=== PATIENT | female | born 1960 | race Hispanic/Latino ===

== ENCOUNTER 2024-09-30 09:54 | Day surgery (SDC) | payer OTHER ==
[2024-09-26 12:40] LABS: BASOPHILS # (AUTO) 0.04 K/uL (0.00-0.20); BASOPHILS % (AUTO) 0.7 % (0.0-5.0); EOSINOPHILS # (AUTO) 0.16 K/uL (0.00-0.70); EOSINOPHILS % (AUTO) 2.6 % (0.0-8.0); HEMATOCRIT 42.3 % (36-48); IMMATURE GRANULOCYTE ABSOLUTE 0.01 K/uL (0-1); LYMPHOCYTES # (AUTO) 2.2 K/uL (1.0-4.8); LYMPHOCYTES % (AUTO) 36.3 % (21.0-51.0); MEAN CORPUSCULAR HEMOGLOBIN 31.1 pg (27.0-33.0); MEAN CORPUSCULAR HGB CONC 32.4 g/dL (32.0-36.0); MEAN CORPUSCULAR VOLUME 96.1 fL (79-99); MONOCYTES # (AUTO) 0.5 K/uL (0.1-1.0); MONOCYTES % (AUTO) 8.7 % (3.0-13.0); NEUTROPHILS # (AUTO) 3.2 K/uL (1.8-7.7); NEUTROPHILS % (AUTO) 51.5 % (40.0-77.0); PLATELET COUNT (AUTO) 207 K/uL (130-400); RED CELL DISTRIBUTION WIDTH 12.3 % (11.0-15.5); WHITE BLOOD COUNT (AUTO) 6.1 K/uL (4.8-10.8)
[2024-09-26 12:50] LABS: INR 0.99 (0.85-1.15); PROTHROMBIN TIME 10.7 SEC (9.6-11.6)
--- NOTE | 2024-09-26 12:50 | HMCIMG ---
CHEST 1VW REASON: PREOP COMPARISON: None. FINDINGS: Single view of the chest was obtained. Lungs are clear. Heart size is normal. There is no pulmonary vascular congestion. Mediastinum and bony thorax appear unremarkable. IMPRESSION: 1. Normal single view chest x-ray.
[2024-09-26 12:51] VITALS: BP 146/68; PULSE 77; RESP 16; TEMP 97.8
[2024-09-26 12:51] LABS: PARTIAL THROMBOPLASTIN TIME 25.5 SEC (26.3-35.5)
[2024-09-26 13:06] LABS: B-TYPE NATRIURETIC PEPTIDE 23 pg/mL (0-100)
[2024-09-26 13:09] LABS: CREATININE 0.8 mg/dL (0.5-1.0); POTASSIUM 4.7 mmol/L (3.5-5.1)
[2024-09-26 13:15] LABS: APPEARANCE,URINE CLEAR (CLEAR); BILIRUBIN,URINE NEGATIVE (NEGATIVE); COLOR,URINE LIGHT-YELLOW (YELLOW); GLUCOSE, URINE (UA) NEGATIVE (NEGATIVE); KETONES,URINE NEGATIVE (NEGATIVE); LEUKOCYTE ESTERASE ,URINE NEGATIVE Leu/uL (NEGATIVE); NITRATE,URINE NEGATIVE (NEGATIVE); OCCULT BLOOD,URINE NEGATIVE (NEGATIVE); PH,URINE 5.5 (5.0-8.0); PROTEIN,URINE NEGATIVE (NEGATIVE); UROBILINOGEN,URINE 0.2 mg/dL (0.2-1.0)
[2024-09-26 13:36] LABS: ADD UA MICROSCOPIC NO
--- NOTE | 2024-09-27 06:37 | EKG ---
[facility] Test Date: 2024-09-26 Test Time: 13:11:46 Pat Name: FRANCK CORBETT Department: [facility] Room: Gender: F Monitoring Engineer: [id number] : 1960 Requested By: PENNY RODRIGUEZ Order Number: [id number] Reading MD: Lisa Castillo Measurements Intervals [place] Rate: 70 P: 47 TX: 157 QRS: 60 QRSD: 81 T: 63 QT: 414 QTc: 446 Interpretive Statements Sinus rhythm No previous ECG available for comparison Electronically Signed On 09-27-2024 16:19:51 SUPPLIER QUALITY ENGINEER by Lisa Castillo Please click the below link to view image of tracing.
[~2024-09-30] VITALS: Ht 154.9 cm; Wt 62.0 kg
[2024-09-30] VITALS (10 sets, daily range): BP systolic 106–147; BP diastolic 59–75; PULSE 62–70; RESP 12–18; TEMP 97.3–98.6
[~2024-09-30 09:54] MED LIST: ASPI-1197 PO; ATOR40TA69 PO; CA C1TAB98 PO; CYAN50009 PO; GLUC-172 PO; SUMA1TAB7 PO
[2024-09-30] MEDS ORDERED: LIDOCAINE HCL 400MG/20ML VIAL ONE (13:03)
[2024-09-30] MEDS ORDERED: BIVALIRUDIN 250 MG/VIAL IV ONE (13:03)
[2024-09-30] MEDS ORDERED: HEParin 10,000 UNIT/10ML (1,000 UNIT/ML) VIAL ONE (13:04)
[2024-09-30] MEDS ORDERED: HEParin-NS 1,000 UNIT/500 ML 1,000 ML IV ONE (13:04)
[2024-09-30] MEDS ORDERED: IOHEXOL 350 MG/ML 100ML INFUS..BTL IV ONE (13:04)
[2024-09-30] MEDS ORDERED: NITROGLYCERIN 50MG VIAL ONE (13:04)
[2024-09-30] MEDS ORDERED: IOHEXOL-350 50ML VIAL IV ONE (13:04)
[2024-09-30] MEDS ORDERED: FENTanyl CITRate PF 50 MCG/1 ML 2ML VIAL ONE ×2 (13:09→14:05)
[2024-09-30] MEDS ORDERED: MIDAZOLAM HCL 1 MG/ML 2ML VIAL ONE (13:10)
--- NOTE | 2024-09-30 15:05 | PRN ---
DATE OF PROCEDURE: 09/30/2024 PROCEDURE PERFORMED: LEFT HEART CATHETERIZATION, LEFT VENTRICULOGRAM, LEFT AND RIGHT SELECTIVE CORONARY ANGIOGRAM, LEFT INTERNAL MAMMARY ARTERY INJECTION, INTRAVASCULAR ULTRASOUND OF LAD AND LEFT MAIN, IFR OF LEFT MAIN, LEFT COMMON FEMORAL ANGIOGRAM, PERCLOSE SUTURE CLOSURE OF THE RIGHT COMMON FEMORAL ARTERY, AND CONSCIOUS SEDATION MEDICAL TECHNOLOGIST CHIEF: Noah Rodriguez MD, [facility] INDICATION: ASYMPTOMATIC STATUS ABNORMAL CORONARY CALCIUM SCORE OF 250 IN THE LEFT MAIN AREA ABNORMAL CORONARY CT ANGIOGRAM DEMONSTRATING A 50% STENOSIS IN THE LEFT MAIN AND LAD PROCEDURE NOTE: After informed consent was obtained the patient was prepped and draped in the usual sterile fashion. A 6 Nepalese arterial sheath was inserted in the right femoral artery using a micropuncture technique with ultrasound guidance with a front wall, first pass puncture. This was performed after fluoroscopic identification of bony landmarks to facilitate a more accurate puncture of the right common femoral artery. The arterial sheath was aspirated and flushed. A 6 Nepalese pigtail catheter was then advanced over a J-tipped guidewire to the ascending aorta and was prolapsed into the left ventricle. The catheter was aspirated and flushed and pressure measurements were obtained. A left ventriculogram was then performed in a 30 LYLES projection. A pullback procedure was then performed, and this catheter was removed over a J-tipped guidewire. A 6F JL-4 was then advanced to the ascending aorta over a J-tipped guidewire, was aspirated and flushed, and was used for selective left coronary angiograms in multiple obliquities. A JR-4 was advanced in a similar fashion to the ascending aorta over a J-tipped guidewire and was used for selective right coronary angiograms in multiple obliquities with findings as outlined below. The JR4 was also used for a selective left internal mammary artery injection to assess suitability for use as a bypass conduit. A six Nepalese JL 3.5 guiding catheter was used for IFR of the left main and IVUS of the left main. A right common femoral angiogram was performed to assess suitability for Perclose suture closure and the Perclose device was deployed in standard fashion. Perclose suture closure was successful without bleeding or hematoma. The patient t olerated the procedure well and was returned to the holding area in stable condition. FINDINGS: LEFT HEART HEMODYNAMICS: The LVEDP prior to LV-gram was 18 mm of mercury and after the LV-gram was 19 mm of mercury. There was no aortic valve gradient on pullback. LEFT VENTRICULOGRAM: A left ventriculogram in a 30 degree LYLES projection demonstrated normal LV systolic function and segmental wall motion with an LVEF estimate of 65%. There was no angiographic MR. CORONARY ANGIOGRAM: LEFT MAIN: The left main had a 60% distal tubular stenosis. The ostial left main had a 25% inferior eccentric stenosis. IFR of the left main demonstrated readings of 0.94 and 0.95. IVUS measurements of the left main minimal luminal area were: 5.4 millimeters squared 5.2 millimeters squared 4.7 millimeters squared LEFT ANTERIOR DESCENDING: The LAD had a 20% tubular stenosis in the mid segment in the vicinity of the 1st septal cylinder honer. The ongoing mid and distal LAD were normal. The diagonal branches were normal. LEFT CIRCUMFLEX: The left circumflex was nondominant and normal as were the obtuse marginal branches. RAMUS INTERMEDIATE BRANCH: There was no ramus intermediate branch. RIGHT CORONARY ARTERY: The right coronary artery was dominant and had a 30% proximal stenosis but was otherwise normal as were the PDA and posterolateral branches. IMPRESSION: Asymptomatic cardiac status. Abnormal coronary CT angiogram with 50% left main stenosis. 60% distal left main tubular stenosis with minimal luminal area average of 5.1 millimeters squared (less than 6 millimeters squared is associated with increased MACE (major adverse cardiac events) IFR the left main stenosis was 0.94 with a repeat of 0.95 (less than 0.89 a significant) Otherwise nonobstructive coronary artery disease. Normal LV systolic function and segmental wall motion with LVEF of 65%. No mitral regurgitation. No aortic stenosis. RECOMMENDATION: Shared decision-making with CT surgery, patient, and clearance center manager. COMPLICATIONS OF PROCEDURE: None, the patient tolerated the procedure well and was returned to her room in stable condition. HEMOSTASIS: Perclose suture closure was successful without bleeding or hematoma. ESTIMATED BLOOD LOSS: Less than 10 mL. CONTRAST TOTAL: 150 mL. NOAH RODRIGUEZ MD Sep 30, 2024 15:05
[2024-09-30] MEDS: 0.9%NACL 1000ML 1,000 ML IV SCH (15:34)
--- NOTE | 2024-09-30 15:40 | NUR ---
PER JOSEPH /DR CAZARES WONT BE BY TO SEE PT TODAY , HE IS AWARE OF PT AND PAPER WORK WAS FAXED TO DR CAZARES OFFICE PT AND FAMILY MADE AWARE , WILL GIVE PT AND FAMILY DR CAZARES INFORMATION OF CONTACT
--- NOTE | 2024-09-30 17:00 | NUR ---
report received report from elba teresa rn
--- NOTE | 2024-09-30 18:24 | NUR ---
d/c discharge instructions given to pt and daughter. understanding voiced. rt groin free from hematoma or bleeding. sister at side. pt taken out via w/c.
== END 2024-09-30 18:30 | disposition home or self-care (01) ==
LOC: DAH 09:54
PROVIDERS: ATTEND Internal Medicine Cardiovascular Disease
DX: R94.39 Abnormal result of other cardiovascular function study (principal); I25.10 Atherosclerotic heart disease of native coronary artery without angina pectoris; R93.1 Abnormal findings on diagnostic imaging of heart and coronary circulation; I25.84 Coronary atherosclerosis due to calcified coronary lesion; E78.5 Hyperlipidemia, unspecified; I10 Essential (primary) hypertension; Z79.01 Long term (current) use of anticoagulants; Z79.82 Long term (current) use of aspirin; Z79.899 Other long term (current) drug therapy; Z90.49 Acquired absence of other specified parts of digestive tract
CPT/HCPCS: 80048; 83880; 85025; 85610; 85730; 81003; 36415; 71045; 93005; 93458; 92978; 92979; 93571; C1887; C1894 ×2; C1769 ×2; C1760; C1753; Q9965 ×2; J3010 ×2; J3490 ×2; J1644 ×2; J2250; Q9967 ×2; A4215; A4222; A4221; A4663; A4216; A4606; A4223 ×3; 99156; 99157; J0583

== ENCOUNTER 2024-12-05 15:00 | Inpatient (IN) | payer OTHER ==
[~2024-12-05] VITALS: Ht 154.9 cm; Wt 59.4 kg
[2024-12-05 11:13] VITALS: BP 161/70; PULSE 69; RESP 19; TEMP 97.9
[2024-12-05 11:19] LABS: BASOPHILS # (AUTO) 0.02 K/uL (0.00-0.20); BASOPHILS % (AUTO) 0.3 % (0.0-5.0); EOSINOPHILS # (AUTO) 0.17 K/uL (0.00-0.70); EOSINOPHILS % (AUTO) 2.7 % (0.0-8.0); HEMATOCRIT 41.6 % (36-48); IMMATURE GRANULOCYTE ABSOLUTE 0.01 K/uL (0-1); LYMPHOCYTES # (AUTO) 2.1 K/uL (1.0-4.8); LYMPHOCYTES % (AUTO) 33.6 % (21.0-51.0); MEAN CORPUSCULAR HGB CONC 32.5 g/dL (32.0-36.0); MEAN CORPUSCULAR VOLUME 95.6 fL (79-99); MONOCYTES # (AUTO) 0.6 K/uL (0.1-1.0); MONOCYTES % (AUTO) 9.3 % (3.0-13.0); NEUTROPHILS # (AUTO) 3.4 K/uL (1.8-7.7); NEUTROPHILS % (AUTO) 53.9 % (40.0-77.0); PLATELET COUNT (AUTO) 214 K/uL (130-400); RED BLOOD CELL COUNT(AUTO) 4.35 MIL/uL (4.00-5.50); RED CELL DISTRIBUTION WIDTH 12.4 % (11.0-15.5); WHITE BLOOD COUNT (AUTO) 6.3 K/uL (4.8-10.8)
[2024-12-05 11:27] LABS: HEMOGLOBIN A1C 5.8 % (4.0-6.0)
[2024-12-05 11:31] LABS: BILIRUBIN,TOTAL 1.8 mg/dL (0.2-1.0); CREATININE 0.7 mg/dL (0.5-1.0); POTASSIUM 4.7 mmol/L (3.5-5.1)
[2024-12-05 11:43] LABS: B-TYPE NATRIURETIC PEPTIDE 21 pg/mL (0-100)
[2024-12-05 11:45] LABS: INR 0.94 (0.85-1.15); PROTHROMBIN TIME 10.6 SEC (9.6-11.6)
[2024-12-05 11:47] LABS: PARTIAL THROMBOPLASTIN TIME 25.5 SEC (26.3-35.5)
[2024-12-05 12:10] LABS: ABG BASE EXCESS 0.2 mmol/L (-2.0-3.0); ABG HCO3 24.4 mmol/L (21.0-28.0); ABG OXYGEN SATURATION 97.3 % (94.0-98.0); ABG PCO2 38 mmHg (32-45); ABG PH 7.425 (7.350-7.450); PO2, ARTERIAL BG 93.5 mmHg (83.0-108.0); VENT MODE, BG RA (ROOM AIR)
--- NOTE | 2024-12-06 07:27 | EKG ---
[facility] Test Date: 2024-12-05 Test Time: 11:49:26 Pat Name: FRANCK CORBETT Department: Patient ID: [id number] Room: 212 Gender: F Senior Policy Analyst: [id number] : 1960 Requested By: ZACARIAS CAZARES Order Number: [id number] Reading MD: Henrry Castillo Measurements Intervals [place] Rate: 60 P: 49 DC: 186 QRS: 52 QRSD: 81 T: 61 QT: 450 QTc: 450 Interpretive Statements Sinus rhythm Compared to ECG 09/26/2024 13:11:46 No significant changes Electronically Signed On 12-08-2024 16:00:00 CONCRETE BLOCK PLANT SUPERVISOR by Henrry Castillo Please click the below link to view image of tracing.
[2024-12-08] VITALS (45 sets, daily range): BP systolic 91–248; BP diastolic 55–104; PULSE 72–105; RESP 6–29; TEMP 97.4–99.7; O2SAT 100
[2024-12-08] MEDS ORDERED: NOREPINEPHRIN 8MG/250ML NS 250 ML IV PRN (06:30)
[2024-12-08] MEDS ORDERED: aminoCAProic ACID 5,000MG VIAL 15,000 MG in 0.9% NACL 500ML IV.SOLN 420 ML IV PRN (06:30)
[2024-12-08] MEDS ORDERED: EPINEPHrine PF 1MG (1:1,000) 10 MG in 0.9% NACL 250ML 240 ML IV PRN ×2 (06:30→13:00)
[2024-12-08] MEDS: CLINDAMYCIN IVPB 600MG/50ML 50 ML IV ONE ×2 (06:44→12:24)
[2024-12-08] MEDS ORDERED: HEParin-NS 1,000 UNIT/500 ML 500 ML IV ONE (06:57)
[2024-12-08] MEDS ORDERED: ceFAZolin SODIUM 1 GM VIAL ONE (06:57)
[2024-12-08] MEDS ORDERED: PAPAVERINE HCL 30 MG/ML 2ML VIAL ONE (06:58)
[2024-12-08] MEDS ORDERED: NITROGLYCERIN 50MG/D5W 250ML 1 BOT ONE (07:22)
[2024-12-08] MEDS: 0.9%NACL 1000ML 1,000 ML IV ONE (07:29)
[2024-12-08] MEDS: metoPROLOL tartRATE 25 MG TAB ONE (07:29)
[2024-12-08] MEDS ORDERED: HEParin 10,000 UNIT/10ML (1,000 UNIT/ML) VIAL ONE (11:35)
[2024-12-08] MEDS ORDERED: PROTamine SULFate 10 MG/ML 25ML VIAL IV ONE (11:35)
[2024-12-08] MEDS ORDERED: NOREPINEPHRINE BITARTRATE 1 MG/1 ML ML IV ONE (11:35)
[2024-12-08] MEDS ORDERED: SODIUM BICARB 50MEQ 50ML VIAL 200 ML ONE (11:35)
[2024-12-08] MEDS ORDERED: proPOFol 10 MG/ML 20ML VIAL IV ONE (11:35)
[2024-12-08] MEDS ORDERED: LIDOCAINE PF 100MG/5ML (2%) SYRINGE 5ML ONE (11:35)
[2024-12-08] MEDS ORDERED: EPINEPHrine PF 1MG (1:1,000) 1 MG/ML AMP ONE (11:35)
[2024-12-08] MEDS ORDERED: rocuRONium bROMide 10MG/1ML 5ML VL ONE (11:36)
[2024-12-08] MEDS ORDERED: FENTanyl CITRate PF 50 MCG/1 ML 20ML VIAL IJ ONE (11:36)
[2024-12-08] MEDS ORDERED: MIDAZOLAM HCL 1 MG/ML 2ML VIAL ONE (11:36)
[2024-12-08] MEDS ORDERED: ketaMINE HCL 100 MG/ML 5ML VIAL IJ ONE (11:37)
[2024-12-08] MEDS: PAPAVERINE HCL 30 MG/ML 2ML VIAL IRRIG ONE (12:30)
[2024-12-08 12:45] LABS: ABG BASE EXCESS -3.7 mmol/L (-2.0-3.0); ABG HCO3 21.3 mmol/L (21.0-28.0); ABG OXYGEN SATURATION 99.9 % (94.0-98.0); ABG PCO2 39 mmHg (32-45); ABG PH 7.361 (7.350-7.450); CARBON MONOXIDE 0.3 % (0.5-1.5); DEVICE COMMENT 1; HHb 0.1; PO2, ARTERIAL BG 435.2 mmHg (83.0-108.0)
[2024-12-08] MEDS ORDERED: NITROGLYCERIN 50MG/D5W 250ML 250 BOT IV SCH (13:00)
[2024-12-08] MEDS ORDERED: dexmedeTOMIDine 400MCG/NS100ML IV SCH (13:00)
[2024-12-08] MEDS ORDERED: ALBUMIN (HUMAN) 5% 250 ML IV PRN (13:00)
[2024-12-08] MEDS ORDERED: GLUCAGON 1MG KIT 1 MG ML IM PRN (13:00)
[2024-12-08] MEDS ORDERED: proPOFol 1000 MG/100 ML 100 ML IV PRN (13:00)
[2024-12-08] MEDS ORDERED: MAGNESIUM HYDROXIDE 30 ML/UDCUP PO PRN (13:00)
[2024-12-08] MEDS ORDERED: ondanSETRON 4MG INJ IV PRN (13:00)
[2024-12-08] MEDS ORDERED: DEXTROSE 50%-WATER 50 ML DISP.SYRIN IV PRN (13:00)
[2024-12-08] MEDS ORDERED: acetaMINOPHEN 650 MG SUPPOSITORY RC PRN (13:00)
[2024-12-08] MEDS ORDERED: 0.9% NACL 500ML IV.SOLN 500 ML IV SCH (13:00)
[2024-12-08] MEDS ORDERED: 0.9%NACL 10ML VIAL IVP PRN (13:00)
[2024-12-08] MEDS ORDERED: morPHINE 2 MG SYG IV PRN ×2 (13:00)
[2024-12-08] MEDS ORDERED: poTASSium PHOS 15 mMOL+NS250ML 250 ML IV PRN (13:00)
[2024-12-08] MEDS ORDERED: NOREPINEPHRINE BITARTRATE 8 MG in DEXTROSE 5%-WATER 250 ML IV PRN (13:00)
[2024-12-08] MEDS ORDERED: acetaMINOPHEN 325 MG TAB PO PRN (13:00)
[2024-12-08] MEDS ORDERED: aminoCAProic ACID 5,000MG VIAL 15,000 MG in 0.9% NACL 250ML 250 ML IV SCH (13:00)
[2024-12-08] MEDS ORDERED: LACTULOSE 20 GM/30 ML UDCUP PO PRN (13:00)
[2024-12-08] MEDS ORDERED: COMPOUND IV MISC 1 EACH IVSOLN MISC PRN (13:30)
[2024-12-08 13:37] LABS: ABG BASE EXCESS -0.6 mmol/L (-2.0-3.0); ABG HCO3 23.7 mmol/L (21.0-28.0); ABG OXYGEN SATURATION 99.7 % (94.0-98.0); ABG PCO2 38 mmHg (32-45); ABG PH 7.418 (7.350-7.450); CARBON MONOXIDE 0.3 % (0.5-1.5); DEVICE COMMENT 2; HHb 0.3; PO2, ARTERIAL BG 447.4 mmHg (83.0-108.0)
[2024-12-08] MEDS ORDERED: VASOpressin 20 UNITS/ML 1ML VIAL ONE (13:48)
[2024-12-08] MEDS: 0.9%NACL 1000ML 1,000 ML IV SCH (13:57)
[2024-12-08] MEDS: INSULIN REGULAR, HUMAN 3ML 100 UNIT in 0.9%NACL 100ML 99 ML IV SCH (14:05)
[2024-12-08 14:16] LABS: ABG BASE EXCESS 1.2 mmol/L (-2.0-3.0); ABG HCO3 24.3 mmol/L (21.0-28.0); ABG OXYGEN SATURATION 99.4 % (94.0-98.0); ABG PCO2 34 mmHg (32-45); ABG PH 7.478 (7.350-7.450); CARBON MONOXIDE 0.2 % (0.5-1.5); DEVICE COMMENT SYLVIA RN AL; HHb 0.6; PO2, ARTERIAL BG 462.1 mmHg (83.0-108.0); VENT MODE, BG SIMV PS 10 (ROOM AIR)
[2024-12-08 14:27] LABS: HEMATOCRIT 29.4 % (36-48); MEAN CORPUSCULAR HEMOGLOBIN 32.2 pg (27.0-33.0); MEAN CORPUSCULAR HGB CONC 34.4 g/dL (32.0-36.0); MEAN CORPUSCULAR VOLUME 93.6 fL (79-99); RED BLOOD CELL COUNT(AUTO) 3.14 MIL/uL (4.00-5.50); RED CELL DISTRIBUTION WIDTH 12.8 % (11.0-15.5); WHITE BLOOD COUNT (AUTO) 18.1 K/uL (4.8-10.8)
[2024-12-08 14:33] LABS: INR 1.16 (0.85-1.15); PROTHROMBIN TIME 12.1 SEC (9.6-11.6)
[2024-12-08 14:34] LABS: CREATININE 0.7 mg/dL (0.5-1.0); MAGNESIUM 1.4 mg/dL (1.80-2.40); PARTIAL THROMBOPLASTIN TIME 24.6 SEC (26.3-35.5); PHOSPHORUS 4.5 mg/dL (2.5-4.9); POTASSIUM 3.6 mmol/L (3.5-5.1)
--- NOTE | 2024-12-08 14:36 | EKG ---
[facility] Test Date: 2024-12-08 Test Time: 14:21:59 Pat Name: FRANCK CORBETT Department: 2CV Room: 212 1 Gender: F Weight Inspector: [id number] : 1960 Requested By: ZACARIAS CAZARES Order Number: [id number] Reading MD: Henrry Castillo Measurements Intervals [place] Rate: 105 P: 81 WI: 140 QRS: 70 QRSD: 74 T: 14 QT: 374 QTc: 494 Interpretive Statements Sinus tachycardia ST elevation, consider anterolateral injury or acute infarct ACUTE TX / STEMI Compared to ECG 12/05/2024 11:49:26 ST (T wave) deviation now present Myocardial infarct finding now present Sinus rhythm no longer present Electronically Signed On 12-08-2024 16:05:43 PROMOTIONS ASSISTANT SALES MARKETING by Henrry Castillo Please click the below link to view image of tracing.
[2024-12-08] MEDS: PoTASSium chloRIDE 20MEQ/100ML 100 ML IV PRN (14:43)
[2024-12-08] MEDS: CALCIUM GLUC 1GM 1 GM in 0.9%NACL 50ML 50 ML IV PRN (14:50)
[2024-12-08] MEDS: ASPIRIN 81MG CHEW TAB NG ONE (15:01)
--- NOTE | 2024-12-08 15:24 | HMCIMG ---
CHEST 1VW HISTORY: Infiltrate COMPARISON: 12/05/2024 FINDINGS: A frontal projection of the chest was obtained. Mild bilateral pulmonary infiltrates are seen may be related to mild pulmonary vascular congestion with possible superimposed pneumonitis. The heart is borderline enlarged. All the lines and tubes are again seen in place. No evidence of aortic calcification is seen. IMPRESSION: 1. Bilateral pulmonary infiltrates are seen suggestive of pulmonary vascular congestion with possible superimposed pneumonitis.
[2024-12-08 15:38] LABS: ABG BASE EXCESS -1.1 mmol/L (-2.0-3.0); ABG HCO3 20.9 mmol/L (21.0-28.0); ABG OXYGEN SATURATION 99.5 % (94.0-98.0); ABG PCO2 27 mmHg (32-45); ABG PH 7.503 (7.350-7.450); CARBON MONOXIDE 0.3 % (0.5-1.5); DEVICE COMMENT SYLVIA RN AL; HHb 0.5; PO2, ARTERIAL BG > 500.0 mmHg (83.0-108.0); VENT MODE, BG SIMV PS 10 (ROOM AIR)
[2024-12-08] MEDS: SODIUM BICARB 50MEQ 50ML VIAL IV PRN (16:08)
[2024-12-08] MEDS: MAGNESIUM 2GM PREMIX 50ML 50 ML IV PRN (16:11)
[2024-12-08] MEDS: acetaMINOPHEN 1,000 MG/100 ML VIAL IV SCH (16:16)
--- NOTE | 2024-12-08 16:22 | HMCIMG ---
US CAROTID DUPLEX HISTORY: Preop COMPARISON: None TECHNIQUE: Duplex carotid arterial Doppler ultrasound study was performed. FINDINGS: The common, internal and external carotid arteries are visualized. The peak systolic velocities of right common carotid artery is 78 centimeters per second, right internal carotid artery is 111 centimeters per second, right external carotid artery is 85 centimeters per second, and right vertebral artery is 54 centimeters per second. Right internal carotid artery to right common carotid artery ratio is 1.4. Right vertebral artery is seen with antegrade flow. The peak systolic velocities of left common carotid artery is 81 centimeters per second, left internal carotid artery is 119 centimeters per second, left external carotid artery is 107 centimeters per second, and left vertebral artery is 52 centimeters per second. Left internal carotid artery to left common carotid artery ratio is 1.5. Left vertebral artery is seen with antegrade flow. There are bilateral echogenic plaques. IMPRESSION: 1. No hemodynamically significant lesion is seen of either extracranial carotid artery system.
[2024-12-08 17:13] LABS: ABG BASE EXCESS -2.2 mmol/L (-2.0-3.0); ABG HCO3 19.8 mmol/L (21.0-28.0); ABG OXYGEN SATURATION 99.4 % (94.0-98.0); ABG PCO2 26 mmHg (32-45); ABG PH 7.494 (7.350-7.450); CARBON MONOXIDE 0.3 % (0.5-1.5); DEVICE COMMENT SYLVIA RN AL; HHb 0.6; PO2, ARTERIAL BG 429.6 mmHg (83.0-108.0); VENT MODE, BG SIMV PS10 (ROOM AIR)
--- NOTE | 2024-12-08 18:36 | NUR ---
SPEECH TRIGGER COMPLETED (INTUBATION). Pt IS A 64 Y.O. FEMALE ADMITTED SECONDARY TO CORONARY ARTERY DISEASE. Pt HAS A PAST MEDICAL HISTORY SIGNIFICANT FOR HYPERTENSION AND HYPERLIPIDEMIA. Pt CURRENTLY INTUBATED AND NPO. PLEASE REQUEST SPEECH THERAPY SERVICES FOR SKILLED BEDSIDE SWALLOW EVALUATION 24 HOURS POST EXTUBATION IF ANY S/S OF ASPIRATION ARISE WITH ORAL INTAKE. COMPOSITE TECHNICIAN COORDINATED WITH NURSE YUEN. ALL QUESTIONS ANSWERED AT THIS TIME. Addendum: 12/09/[address] [facility] MONGE Amended: Links added.
[2024-12-08 18:50] LABS: ABG HCO3 20.9 mmol/L (21.0-28.0); ABG OXYGEN SATURATION 99.2 % (94.0-98.0); ABG PCO2 27 mmHg (32-45); ABG PH 7.511 (7.350-7.450); CARBON MONOXIDE 0.3 % (0.5-1.5); HHb 0.8; PO2, ARTERIAL BG 232.2 mmHg (83.0-108.0); VENT MODE, BG SIMV ALINE (ROOM AIR)
[2024-12-08 19:56] LABS: ABG HCO3 24.4 mmol/L (21.0-28.0); ABG OXYGEN SATURATION 98.9 % (94.0-98.0); ABG PCO2 35 mmHg (32-45); ABG PH 7.467 (7.350-7.450); CARBON MONOXIDE 0.3 % (0.5-1.5); HHb 1.1; PO2, ARTERIAL BG 169.2 mmHg (83.0-108.0)
[2024-12-08] MEDS: FAMOTIDINE 20MG VIAL IV SCH (20:35)
[2024-12-08] MEDS: doCUSate SODIUM 100 MG CAP PO ONE (20:35)
[2024-12-08] MEDS: CLINDAMYCIN IVPB 900MG/50ML 50 ML IV SCH (20:35)
[2024-12-08] MEDS: atorVAStatin 40 MG TABLET PO SCH (20:35)
[2024-12-08 21:11] LABS: ABG HCO3 21.2 mmol/L (21.0-28.0); ABG OXYGEN SATURATION 98.8 % (94.0-98.0); ABG PCO2 31 mmHg (32-45); ABG PH 7.451 (7.350-7.450); CARBON MONOXIDE 0.3 % (0.5-1.5); DEVICE COMMENT LNE; HHb 1.2; PO2, ARTERIAL BG 170.6 mmHg (83.0-108.0); VENT MODE, BG SIMV PS10 (ROOM AIR)
--- NOTE | 2024-12-08 21:49 | NUR ---
EXTUBATION PT EXTUBATED AT 0 PER CVR EXTUBATION PROTOCOL. ALL PARAMETERS MET. PT PLACED ON AN AEROSOL MASK 10L 35%. PT IS RESTING COMFORTABLY AND IN NO APPARENT DISTRESS. HEMODYNAMICALLY STABLE. WILL CONTINUE TO MONITOR.
--- NOTE | 2024-12-08 21:51 | PN ---
[facility] PROGRESS NOTE Date Patient Seen: Dec 08, 2024 Time of Visit: 21:46 Supervising Physician: LEONOR THOMSON MD Primary Care Physician: [ ] Outpatient Specialists: [ ] Inpatient Consults: [ ] PROBLEM LIST: Status post CABG x 2 Acute hypoxemic respiratory failure Obstructive coronary artery disease Acute Non ST elevation infarction on admission Hypertensive heart disease Essential hypertension Hyperlipidemia Diastolic heart failure with an EF of 60% INTERVAL HISTORY: 12/08/2024 patient seen in the intensive care unit she is now status post CABG x2 she is currently on mechanical ventilator support via ETT she is on SIMV currently on 0.03 of epinephrine and 3 mcg drip of Levophed patient has a chest tube to the right lung with serosanguineous drainage no fevers, no chills, no nausea or vomiting no seizures REVIEW OF SYSTEMS: 12 point ROS reviewed with patient. Pertinent positives mentioned above. Otherwise negative. PHYSICAL EXAM: GENERAL: alert, weak, awake oriented x 3 HEENT: EOMI, Sclera non icteric, moist mucosa NECK: Supple, no JVD, trachea midline LUNGS: Clear breath sounds bilaterally. No wheezes HEART: Regular rate and rhythm. Normal S1 and S2, without murmurs ABD: Abdomen soft, nontender. Bowel sounds present EXT: No clubbing cyanosis or edema NEURO: Alert and oriented to person, follows commands Vital Signs (last 8hr) Date Time Temp Pulse Resp B/P (MAP) Pulse Ox O2 Delivery O2 Flow Rate FiO2 12/08/24 21:21 89 19 8.0 50 12/08/24 20:30 90 12 164/77 (106) 100 12/08/24 20:15 89 10 130/68 (88) 99 118/74 (89) 12/08/24 20:00 99.7 88 12 138/70 (92) 99 12/08/24 20:00 100 Ventilator+ 40 12/08/24 19:45 85 13 137/70 (92) 99 120/73 (89) 12/08/24 19:30 86 8 137/70 (92) 99 12/08/24 19:15 85 8 138/70 (92) 99 124/79 (94) 12/08/24 19:00 87 8 144/71 (95) 100 126/66 (86) 12/08/24 18:53 82 40 12/08/24 18:15 85 12 132/68 (89) 100 50 108/72 (84) 12/08/24 18:00 84 12 136/70 (92) 100 50 101/76 (84) 12/08/24 17:45 82 12 143/71 (95) 100 50 115/71 (86) 12/08/24 17:30 86 12 162/77 (105) 100 50 140/85 (103) 12/08/24 17:15 88 12 149/71 (97) 100 50 121/72 (88) 12/08/24 17:00 98.4 81 12 143/73 (96) 100 50 119/67 (84) 12/08/24 17:00 98.4 12/08/24 16:45 81 12 152/75 (100) 100 80 121/74 (90) 12/08/24 16:30 81 12 150/73 (98) 100 80 117/77 (90) 12/08/24 16:15 81 12 147/72 (97) 100 80 126/73 (90) 12/08/24 16:00 83 12 138/68 (91) 100 80 115/70 (85) 12/08/24 15:45 80 12 129/66 (87) 100 80 113/67 (82) 12/08/24 15:30 80 12 119/63 (81) 100 80 108/63 (78) 12/08/24 15:15 79 12 119/64 (82) 100 100 104/63 (77) 12/08/24 15:00 79 12 133/69 (90) 100 100 117/65 (82) 12/08/24 15:00 100 Ventilator+ 100 12/08/24 14:45 80 12 116/64 (81) 100 100 104/65 (78) 12/08/24 14:30 84 12 139/70 (93) 100 100 120/70 (87) 12/08/24 14:29 86 12 147/71 (96) 100 100 121/67 (85) 12/08/24 14:15 84 12 104/62 (76) 100 100 91/55 (67) 12/08/24 14:07 82 100 12/08/24 14:05 105 6 232/104 (146) 100 100 158/93 (114) 12/08/24 14:00 97.3 81 13 172/80 (110) 100 100 148/84 (105) LABS: Hematology Labs: Test 12/08/24 14:10 Range/Units White Blood Count 18.1 H 4.8-10.8 K/uL Red Blood Count 3.14 L 4.00-5.50 MIL/uL Hemoglobin 10.1 L 12.0-16.0 g/dL Hematocrit 29.4 L 36-48 % Mean Corpuscular Volume 93.6 79-99 fL Mean Corpuscular Hemoglobin 32.2 27.0-33.0 pg Mean Corpuscular Hemoglobin Concent 34.4 32.0-36.0 g/dL Red Cell Distribution Width 12.8 11.0-15.5 % Platelet Count 183 130-400 K/uL Mean Platelet Volume 11.6 H 7.5-10.5 fL Nucleated Red Blood Cells 0.0 0.0-0.19 % Chemistry Labs: Test 12/08/24 20:00 12/08/24 14:10 Range/Units Magnesium Level 2.10 1.80-2.40 mg/dL Sodium Level 147 H 136-145 mmol/L Potassium Level 3.6 3.5-5.1 mmol/L Chloride Level 109 101-111 mmol/L Carbon Dioxide Level 28 21-32 mmol/L Blood Urea Nitrogen 8 7-18 mg/dL Creatinine 0.7 0.5-1.0 mg/dL Glomerular Filtration Rate Calc 97 >90 mL/min Random Glucose 227 H 70-105 mg/dL Total Calcium 8.9 8.5-10.1 mg/dL Phosphorus Level 4.5 2.5-4.9 mg/dL Coagulation Labs: Test 12/08/24 14:10 Range/Units Prothrombin Time 12.1 H 9.6-11.6 SEC Prothromb Time International Ratio 1.16 H 0.85-1.15 Activated Partial Thromboplast Time 24.6 L 26.3-35.5 SEC DIAGNOSTICS / RADIOLOGY RESULTS: [ ] PLAN will continue on mechanical ventilator support for now will start SBT in the morning keep chest tube open to gravity wean off pressors as tolerated keep MAP above 60 mm/hg aspiration precautions NEURO: Minimize central acting medications as possible. Fall Precautions. Well lighted room through the day and minimize interruptions through the night to prevent acute delirium. PULMONARY: Supplemental 02 as needed Titrate Fio2 to keep Spo2 > or = 90% DuoNebs and CPT as needed IS hourly while awake for pulmonary hygiene Out of bed to chair as tolerated VAP Bundle Vent/BIPAP Settings: [ ] Driving pressure: [ ] P Plat: [ ] Static C: [ ] Static R: [ ] P/F Ratio: [ ] CARDIOVASCULAR: Follow hemodynamics. Titrate vasopressor to keep MAP >65 or systolic blood pressure >95mmHg DIPS: [ ] LINES: [ ] GI & NUTRITION: Continue nutritional support Aspirations precautions Prokinetic agents and laxatives as needed KIDNEYS & ELECTROLYTES: Strict monitoring of intake and output Daily weights Avoid nephrotoxic agents Monitor electrolytes and replace as needed Goal urine output of 30mL/hr or 0.5mL/kg/hr Urine output: [ ] Fluid Balance: [ ] ENDOCRINE: Maintain blood glucose between 100-180 at all times. Insulin sliding scale for blood glucose management INFECTIOUS DISEASE: Trend temperature. Aviles-culture if febrile. Micro: [ ] Antibiotics: [ ] HEMATOLOGY & COAGULATION: Monitor H&H. Keep Hgb > 7 Transfuse 1 unit of PRBC for Hgb < 7 Transfuse 1 pack of platelets of platelets < 20, 000 Watch for any signs and symptoms of bleeding SKIN: Pressure ulcer prevention per facility protocol Rehab: PT/OT Prophylaxis: GI: [ ] DVT: [ ] Code Status: Full Resuscitation Disposition: [ ] Other: Total patient care time exceeds 35 minutes excluding all procedures. I personally scribed for LEONOR THOMSON MD ([email or web address]) on 12/08/24 at 21:51. Electronically submitted by Po Mc ([email or web address]). LEONOR THOMSON MD Dec 08, 2024 21:51
[2024-12-08 22:51] LABS: ABG BASE EXCESS -1.3 mmol/L (-2.0-3.0); ABG HCO3 22.9 mmol/L (21.0-28.0); ABG OXYGEN SATURATION 98.1 % (94.0-98.0); ABG PCO2 37 mmHg (32-45); ABG PH 7.411 (7.350-7.450); CARBON MONOXIDE 0.3 % (0.5-1.5); DEVICE COMMENT JESUS RN; HHb 1.9; PO2, ARTERIAL BG 130.6 mmHg (83.0-108.0)
[2024-12-09] VITALS (100 sets, daily range): BP systolic 2–146; BP diastolic 2–80; PULSE 87–137; RESP 7–31; TEMP 97.7–99.9; O2SAT 97–100
--- NOTE | 2024-12-09 03:09 | OP ---
DATE OF PROCEDURE: 12/08/2024 PREOPERATIVE DIAGNOSIS: Coronary artery disease, left main type. POSTOPERATIVE DIAGNOSIS: Coronary artery disease, left main type. PROCEDURE PERFORMED: Off-pump CABG x 2, GIPSON to LAD and reverse saphenous vein graft to oblique marginal. SURGEON: Nikita Castillo MD FRIEND OF THE COURT: Dr. Mc. ANESTHESIOLOGIST: Dr. Martinez. COLOR MAKER DYER: Noah Merino MD INDICATIONS: The patient is of Dr. Noah Merino in whom I had the opportunity to review the medical record, examined the patient and discussed the case with the caring early learning teacher. We both agree surgery is indicated and we have recommended. I had further discussions with the patient in the office in regards to the indications for surgery as well as the potential complications of the operation including but not limited to postoperative bleeding, infection, stroke and/or , as well as associated morbidity and mortality of the procedure as it relates to her own comorbidities as depicted on the site of thoracic surgeons' clinical current database. She wishes to proceed. FINDINGS: At time of surgery, the patient had a relatively small targets about 1.5 mm in the proximal LAD and 1.5 mm on the oblique marginal 1. BLOOD UTILIZATION: None. ESTIMATED BLOOD LOSS: 500 mL. IMPLANTS: Three KRAIG plates with ____ gauge screws. DRAINS: A #32 mediastinal and #19 left-sided Chip. DESCRIPTION OF PROCEDURE IN DETAIL: With the patient in supine position after adequate induction of general endotracheal anesthesia, preoperative intravenous antibiotics, percutaneous arterial and venous lines, surgeon-directed timeout utilizing two patient identifiers, followed by mid sternotomy symptoms, harvesting of the left internal mammary artery from anterior left chest wall and greater saphenous vein from the left lower extremity using endoscopic technique. The patient was systemically heparinized and the mammary artery from chest in preparation for bypass. Chest retractor was placed. Utilizing mechanical stabilizer and 4-prong tourniquet for vascular control, three distal anastomoses performed in end-to-side fashion between GIPSON and LAD, reverse saphenous vein graft and oblique marginal 1. Utilizing a heartstring device, the proximal anastomosis was performed with a running suture of 5-0 Prolene. The graft deaired and myocardium revascularized. Protamine, hemostasis and closure. Two chest drains, stainless steel wires for sternum, open reduction and internal fixation utilizing three KRAIG plates and ____ gauge screws, #1 Vicryl and 3-0 Monocryl for closure. The patient transferred to the ICU in stable condition. TID: [id number] RECEIPT: [id number] cc: NOAH MERINO MD(User)
[2024-12-09 03:45] LABS: ABG BASE EXCESS 1.5 mmol/L (-2.0-3.0); ABG HCO3 25.3 mmol/L (21.0-28.0); ABG OXYGEN SATURATION 98.6 % (94.0-98.0); ABG PCO2 37 mmHg (32-45); ABG PH 7.452 (7.350-7.450); CARBON MONOXIDE 0.3 % (0.5-1.5); DEVICE COMMENT LINE RN; HHb 1.4; PO2, ARTERIAL BG 142.8 mmHg (83.0-108.0); VENT MODE, BG CAFM (ROOM AIR)
[2024-12-09 04:13] LABS: HEMATOCRIT 32.6 % (36-48); MEAN CORPUSCULAR HEMOGLOBIN 31.2 pg (27.0-33.0); MEAN CORPUSCULAR HGB CONC 33.1 g/dL (32.0-36.0); MEAN CORPUSCULAR VOLUME 94.2 fL (79-99); RED BLOOD CELL COUNT(AUTO) 3.46 MIL/uL (4.00-5.50); RED CELL DISTRIBUTION WIDTH 13.2 % (11.0-15.5); WHITE BLOOD COUNT (AUTO) 16.5 K/uL (4.8-10.8)
[2024-12-09 04:24] LABS: INR 1.04 (0.85-1.15)
[2024-12-09 04:25] LABS: PARTIAL THROMBOPLASTIN TIME 23.6 SEC (26.3-35.5)
[2024-12-09 04:28] LABS: CREATININE 0.6 mg/dL (0.5-1.0); MAGNESIUM 1.5 mg/dL (1.80-2.40); PHOSPHORUS 4.1 mg/dL (2.5-4.9); POTASSIUM 3.8 mmol/L (3.5-5.1)
--- NOTE | 2024-12-09 07:48 | EKG ---
[facility] Test Date: 2024-12-09 Test Time: 04:42:18 Pat Name: FRANCK CORBETT Department: 2[facility] Room: 210 Gender: F Computer Software Engineer: [id number] : 1960 Requested By: ZACARIAS CAZARES Order Number: [id number] Reading MD: Jayson Gonzalez Measurements Intervals [place] Rate: 91 P: 74 IA: 152 QRS: 65 QRSD: 82 T: 69 QT: 354 QTc: 436 Interpretive Statements Sinus rhythm Anterolateral infarct, acute (LAD) Compared to ECG 12/08/2024 14:21:59 Sinus tachycardia no longer present ST (T wave) deviation no longer present Myocardial infarct finding still present Electronically Signed On 12-10-2024 07:37:27 REGISTERED ROUTE ASSOCIATE by Jayson Gonzalez Please click the below link to view image of tracing.
--- NOTE | 2024-12-09 08:45 | PN ---
[facility] PROGRESS NOTE Date Patient Seen: Dec 09, 2024 Time of Visit: 09:45 Supervising Physician: Kole Power MD Primary Care Physician: [ ] Outpatient Specialists: [ ] Inpatient Consults: [ ] PROBLEM LIST: Status post CABG x 2 Acute hypoxemic respiratory failure Obstructive coronary artery disease Acute Non ST elevation infarction on admission Hypertensive heart disease Essential hypertension Hyperlipidemia Diastolic heart failure with an EF of 60% INTERVAL HISTORY: Day #1 s/p CABGx 2. She is awake alert and oriented x3. Sitting up in recliner chair. She has been extubated successfully. She is saturating 97% with 2 L via nasal cannulah, conitnues with epi drip at 0.03 micrograms/kilogram per minute per CV protocol, Hemodynamically stable not on any pressors heart rate in the 90s respiratory rate of 16 unlabored and afebrile. She does report occasional tenderness to midsternal incision with movement. She will be provided and incentive spirometer and I have instructed her to use every hour. Patient verbalized understanding. Urine output 3.2 L, chest tube output 230 mL and balance of-1.3 L in the last 24 hours. White count trending down as expected 16.5 today H&H is 10.8/32.6 and CBC stable. No signs of bleeding. Kidneys are doing well with a creatinine of 0.5 GFR of 105 glucose 130 mg/dL. Chest x-ray shows mild bilateral pulmonary infiltrates seen may be related to mild pulmonary vascular congestion with possible superimposed pneumonitis. no fevers, no chills, no nausea or vomiting no seizures We will continue follow CV surgeon recommendations. REVIEW OF SYSTEMS: 12 point ROS reviewed with patient. Pertinent positives mentioned above. Othe rwise negative. PHYSICAL EXAM: GENERAL: alert, weak, awake oriented x 3 HEENT: EOMI, Sclera non icteric, moist mucosa NECK: Supple, no JVD, trachea midline LUNGS: Diminished breath sounds bilaterally. No wheezes, mid sternal vertical incision dressing clean dry and intact, CT in place. HEART: Regular rate and rhythm. Normal S1 and S2, without murmurs ABD: Abdomen soft, nontender. Bowel sounds present EXT: No clubbing cyanosis or edema NEURO: Alert and oriented to person, follows commands Vital Signs (last 8hr) Date Time Temp Pulse Resp B/P (MAP) Pulse Ox O2 Delivery O2 Flow Rate FiO2 2/25/25 07:15 89 21 115/49 (71) 100 32 110/64 (79) 12/09/24 07:00 97.7 91 22 112/50 (70) 100 32 115/67 (83) 12/09/24 06:45 91 26 111/49 (69) 99 32 106/60 (75) 12/09/24 06:30 92 30 119/53 (75) 99 123/66 (85) 12/09/24 06:19 90 31 96/54 (68) 98 104/59 (74) 12/09/24 06:15 89 19 81/67 (72) 97 12/09/24 05:45 94 28 112/59 (76) 97 12/09/24 05:30 91 21 2/ (2) 97 12/09/24 05:15 91 19 123/55 (77) 97 12/09/24 05:00 92 23 115/53 (73) 98 12/09/24 04:45 91 27 113/53 (73) 98 102/65 (77) 12/09/24 04:30 91 13 121/56 (77) 98 12/09/24 04:15 89 13 122/55 (77) 98 12/09/24 04:00 100 Aerosol Mask+ 35 12/09/24 04:00 98.6 89 24 122/55 (77) 98 12/09/24 03:45 91 12 126/58 (80) 98 115/72 (86) 12/09/24 03:30 91 21 118/55 (76) 98 12/09/24 03:15 92 12 120/56 (77) 98 12/09/24 03:00 95 22 128/62 (84) 98 12/09/24 02:45 94 11 118/57 (77) 98 113/66 (82) 12/09/24 02:30 96 23 129/61 (83) 98 12/09/24 02:15 93 23 125/59 (81) 98 12/09/24 02:00 90 18 118/58 (78) 98 LABS: Hematology Labs: Test 12/09/24 03:34 Range/Units White Blood Count 16.5 H 4.8-10.8 K/uL Red Blood Count 3.46 L 4.00-5.50 MIL/uL Hemoglobin 10.8 L 12.0-16.0 g/dL Hematocrit 32.6 L 36-48 % Mean Corpuscular Volume 94.2 79-99 fL Mean Corpuscular Hemoglobin 31.2 27.0-33.0 pg Mean Corpuscular Hemoglobin Concent 33.1 32.0-36.0 g/dL Red Cell Distribution Width 13.2 11.0-15.5 % Platelet Count 179 130-400 K/uL Mean Platelet Volume 11.5 H 7.5-10.5 fL Nucleated Red Blood Cells 0.0 0.0-0.19 % Chemistry Labs: Test 12/09/24 06:15 12/09/24 03:34 Range/Units Whole Blood Glucose 139 H 70-110 MG/DL Sodium Level 141 136-145 mmol/L Potassium Level 3.8 3.5-5.1 mmol/L Chloride Level 107 101-111 mmol/L Carbon Dioxide Level 28 21-32 mmol/L Blood Urea Nitrogen 6 L 7-18 mg/dL Creatinine 0.6 0.5-1.0 mg/dL Glomerular Filtration Rate Calc 101 >90 mL/min Random Glucose 143 H 70-105 mg/dL Total Calcium 8.5 8.5-10.1 mg/dL Ionized Calcium 1.12 L 1.16-1.32 MMOL/L Phosphorus Level 4.1 2.5-4.9 mg/dL Magnesium Level 1.50 L 1.80-2.40 mg/dL Coagulation Labs: Test 12/09/24 03:34 Range/Units Prothrombin Time 11.0 9.6-11.6 SEC Prothromb Time International Ratio 1.04 0.85-1.15 Activated Partial Thromboplast Time 23.6 L 26.3-35.5 SEC DIAGNOSTICS / RADIOLOGY RESULTS: IMAGING REPORT Signed PATIENT: FRANCK CORBETT MR#: [id number] : 1960 SEX: F AGE: 64 LOCATION: 2BH ORDER 99 STATUS: ADM IN REPORT#: [id number] SERVICE 0400 REASON: s/p CABG ORDERING PHYSICIAN: ZACARIAS CAZARES MD PROCEDURE: CXR1VW - CHEST 1VW CHEST 1VW HISTORY: Post CABG COMPARISON: 12/08/2024 FINDINGS: A frontal projection of the chest was obtained. Mild bilateral pulmonary infiltrates are seen may be related to mild pulmonary vascular congestion with possible superimposed pneumonitis. Poststernotomy changes are seen. The heart is enlarged. Degenerative changes of the thoracolumbar spine are present. All the lines and tubes are again seen in place. No evidence of aortic calcification is seen. IMPRESSION: 1. Mild bilateral pulmonary infiltrates are seen may be related to mild pulmonary vascular congestion with possible superimposed pneumonitis. DICTATED BY: CHANTE FRENCH MD DATE: 12/09/24 1342 ELECTRONICALLY SIGNED BY: CHANTE FRENCH MD DATE: 12/09/[address] surgeon recommendations Follow cardiology recommendations Multimodal pain management Monitoring H&H Monitor chest tube output Chest x-ray in the morning Transfuse if absolutely necessary to keep hemoglobin above 8 Maintain O2 sats greater than 92% Incentive spirometry q 1 HR Glycemic control with goal of 80-180 continue PT Speech to eval once patient is extubated Aspiration precautions monitor electrolytes: K Goal of 4 Magnesium goal of 2 Replace accordingly keep chest tube open to gravity wean off pressors as tolerated keep MAP above 60 mm/hg aspiration precautions NEURO: Minimize central acting medications as possible. Fall Precautions. Well lighted room through the day and minimize interruptions through the night to prevent acute delirium. PULMONARY: Supplemental 02 as needed Titrate Fio2 to keep Spo2 > or = 90% DuoNebs and CPT as needed IS hourly while awake for pulmonary hygiene Out of bed to chair as tolerated CARDIOVASCULAR: Follow hemodynamics. Titrate vasopressor to keep MAP >65 or systolic blood pressure >95mmHg cardiac monitoring DRIPS: [Epi at 0.03mcg/kg/min ] LINES: [RT IJ CVC arterial line chest tube FC ] GI & NUTRITION: Continue nutritional support Aspirations precautions Prokinetic agents and laxatives as needed KIDNEYS & ELECTROLYTES: Strict monitoring of intake and output Daily weights Avoid nephrotoxic agents Monitor electrolytes and replace as needed Goal urine output of 30mL/hr or 0.5mL/kg/hr Urine output: [ ] Fluid Balance: [ ] ENDOCRINE: Maintain blood glucose between 100-180 at all times. Insulin sliding scale for blood glucose management INFECTIOUS DISEASE: Trend temperature. Aviles-culture if febrile. Micro: [ ] Antibiotics: Ancef x 3 HEMATOLOGY & COAGULATION: Monitor H&H. Keep Hgb > 7 Transfuse 1 unit of PRBC for Hgb < 7 Transfuse 1 pack of platelets of platelets < 20, 000 Watch for any signs and symptoms of bleeding SKIN: Pressure ulcer prevention per facility protocol Rehab: PT/OT Prophylaxis: GI: Pepcid DVT: LOUIS Bonilla per CV surgery Code Status: Full Resuscitation Disposition: ICU Other: Total patient care time [id number] minutes excluding all procedures. GILMER IBARRA ENGINEERING AND SCIENTIFIC PROGRAMMER Dec 09, 2024 08:45
[2024-12-09] MEDS: ASPIRIN 81MG CHEW TAB PO SCH (09:48)
[2024-12-09] MEDS: furoSEMIDE 20MG VIAL IV SCH (09:48)
[2024-12-09 11:37] LABS: CREATININE 0.5 mg/dL (0.5-1.0); MAGNESIUM 2.1 mg/dL (1.80-2.40)
--- NOTE | 2024-12-09 13:45 | HMCIMG ---
CHEST 1VW HISTORY: Post CABG COMPARISON: 12/08/2024 FINDINGS: A frontal projection of the chest was obtained. Mild bilateral pulmonary infiltrates are seen may be related to mild pulmonary vascular congestion with possible superimposed pneumonitis. Poststernotomy changes are seen. The heart is enlarged. Degenerative changes of the thoracolumbar spine are present. All the lines and tubes are again seen in place. No evidence of aortic calcification is seen. IMPRESSION: 1. Mild bilateral pulmonary infiltrates are seen may be related to mild pulmonary vascular congestion with possible superimposed pneumonitis.
--- NOTE | 2024-12-09 14:26 | NUR ---
DCP Patient is Czech speaking. Patient lives alone, six months ago. States lives in a house with a walk in shower with a bench. 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 States able to complete ADL's on her own. Denies medical devices. Denies home health services, home care provider or dialysis. PCP - Cleve Mc MD [facility] - [facility]. Upon discharge, Ashley iMr, Sister [phone] home. Upon discharge, will require assistance; signed consent for SNF and added to chart. Notified MARY Sanford. HX -- S/P CABG 12/09/2024 Day 1 extubated and able to sit in chair. Addendum: 12/09/24 at 1440 by SYL BARAHONA RN CM Amended: Links added.
[2024-12-09] MEDS: traMADol HCL 50 MG TABLET PO PRN (19:58)
[2024-12-10] VITALS (62 sets, daily range): BP systolic 85–249; BP diastolic 36–246; PULSE 86–112; RESP 7–29; TEMP 97.9–98.4; O2SAT 96–99
[2024-12-10 04:47] LABS: MEAN CORPUSCULAR HEMOGLOBIN 31.3 pg (27.0-33.0); MEAN CORPUSCULAR HGB CONC 33.3 g/dL (32.0-36.0); RED BLOOD CELL COUNT(AUTO) 3.19 MIL/uL (4.00-5.50); RED CELL DISTRIBUTION WIDTH 13.2 % (11.0-15.5); WHITE BLOOD COUNT (AUTO) 17.2 K/uL (4.8-10.8)
[2024-12-10 05:01] LABS: CREATININE 0.5 mg/dL (0.5-1.0); POTASSIUM 3.5 mmol/L (3.5-5.1)
[2024-12-10] MEDS: traMADol HCL 50 MG TABLET PO PRN (05:16)
[2024-12-10] MEDS: INSULIN humuLIN R 100 UNIT/ML 3ML SQ SCH (07:30)
[2024-12-10] MEDS: PoTASSium chloRIDE 20MEQ ER 20 MEQ ERTAB PO ONE (08:22)
[2024-12-10] MEDS: furoSEMIDE 20 MG TABLET PO SCH (08:23)
[2024-12-10] MEDS: metoPROLOL tartRATE 25 MG TAB PO SCH (08:23)
[2024-12-10] MEDS ORDERED: PoTASSium chl 10% ELIXIR 20MEQ 20 MEQ/15 ML UDCUP PO PRN (08:30)
--- NOTE | 2024-12-10 11:28 | PN ---
[facility] PROGRESS NOTE Date Patient Seen: Dec 10, 2024 Time of Visit: 11:27 Supervising Physician: Ced Grijalva MD Primary Care Physician: Self Referral, Outpatient Specialists: Zacarias Cazares MD Inpatient Consults: Noah Merino MD, BIS Attending: DR Zacarias Cazares MD PROBLEM LIST: Status post CABG x 2 Acute hypoxemic respiratory failure Obstructive coronary artery disease Acute Non ST elevation infarction on admission Hypertensive heart disease Essential hypertension Hyperlipidemia Diastolic heart failure with an EF of 60% INTERVAL HISTORY: Day #2 s/p CABGx 2. Per RN no major overnight events. She is awake alert and oriented x3. She is recovering well off pressors blood pressure 108/62 with a map of 77 heart rate in the 90s respiratory rate of 15 unlabored saturating 95% with 2 L via nasal cannula. Patient is working with her IS currently pulling 1.2 L. family is at bedside and encouraging. Urine output 1.4 L in the last 24 hours, chest tube output 70 mL mL and balance of + 220 mL in the last 24 hours. Likely chest tube removed today per CV WBCs similar to yesterday 17.2 H&H is 10/30 platelet count is 144 K. chemistry kidneys are doing well creatinine 0.5 GFR 105 sodium of 135 chloride of 100 total calcium of 8.0. On chest x-ray prominent interstitial markings are seen with possible superimposed infiltrates.. We will continue follow CV surgeon recommendations. REVIEW OF SYSTEMS: 12 point ROS reviewed with patient. Pertinent positives mentioned above. Otherwise negative. PHYSICAL EXAM: GENERAL: alert, weak, awake oriented x 3 HEENT: EOMI, Sclera non icteric, moist mucosa NECK: Supple, no JVD, trachea midline LUNGS: clear breath sounds bilaterally. No wheezes, mid sternal vertical incision dressing clean dry and intact, CT in place. HEART: Regular rate and rhythm. Normal S1 and S2, without murmurs ABD: Abdomen soft, nontender. Bowel sounds present EXT: No clubbing cyanosis or edema NEURO: Alert and oriented to person, follows commands Vital Signs (last 8hr) Date Time Temp Pulse Resp B/P (MAP) Pulse Ox O2 Delivery O2 Flow Rate FiO2 12/10/24 09:15 94 15 96/61 (73) 95 12/10/24 09:00 95 23 106/67 (80) 96 12/10/24 08:45 99 23 108/62 (77) 96 12/10/24 08:30 100 13 103/60 (74) 95 12/10/24 08:15 108 15 101/65 (77) 95 12/10/24 08:00 97.9 112 23 119/69 (86) 95 12/10/24 08:00 96 Nasal Cannula* 2 28 12/10/24 07:45 100 16 105/59 (74) 94 12/10/24 07:30 100 11 106/64 (78) 95 12/10/24 07:15 98 7 110/59 (76) 94 12/10/24 07:00 98 17 98/61 (73) 94 12/10/24 06:30 96 13 96/60 (72) 94 12/10/24 06:15 97 16 99/62 (74) 94 12/10/24 06:00 97 18 102/62 (75) 94 12/10/24 05:45 100 26 104/67 (79) 94 12/10/24 05:30 101 27 102/62 (75) 94 12/10/24 05:15 104 19 113/53 (73) 94 112/56 (74) 12/10/24 05:00 102 25 134/60 (84) 95 117/68 (84) 12/10/24 04:45 97 22 113/52 (72) 95 102/59 (73) 12/10/24 04:30 98 14 89/53 (65) 94 98/58 (71) 12/10/24 04:15 97 23 249/246 (247) 94 109/59 (76) 12/10/24 04:00 99 20 120/55 (76) 95 109/65 (80) 12/10/24 03:45 97 24 115/50 (71) 95 103/59 (74) 12/10/24 03:30 94 21 119/52 (74) 95 100/63 (75) LABS: Hematology Labs: Test 12/10/24 04:39 Range/Units White Blood Count 17.2 H 4.8-10.8 K/uL Red Blood Count 3.19 L 4.00-5.50 MIL/uL Hemoglobin 10.0 L 12.0-16.0 g/dL Hematocrit 30.0 L 36-48 % Mean Corpuscular Volume 94.0 79-99 fL Mean Corpuscular Hemoglobin 31.3 27.0-33.0 pg Mean Corpuscular Hemoglobin Concent 33.3 32.0-36.0 g/dL Red Cell Distribution Width 13.2 11.0-15.5 % Platelet Count 144 130-400 K/uL Mean Platelet Volume 11.0 H 7.5-10.5 fL Nucleated Red Blood Cells 0.0 0.0-0.19 % Chemistry Labs: Test 12/10/24 10:47 12/10/24 04:39 12/09/24 11:20 12/09/24 03:34 Range/Units Whole Blood Glucose 105 70-110 MG/DL Sodium Level 135 L 136-145 mmol/L Potassium Level 3.5 3.5-5.1 mmol/L Chloride Level 100 L 101-111 mmol/L Carbon Dioxide Level 30 21-32 mmol/L Blood Urea Nitrogen 9 7-18 mg/dL Creatinine 0.5 0.5-1.0 mg/dL Glomerular Filtration Rate Calc 105 >90 mL/min Random Glucose 92 70-105 mg/dL Total Calcium 8.0 L 8.5-10.1 mg/dL Magnesium Level 2.10 1.80-2.40 mg/dL Ionized Calcium 1.12 L 1.16-1.32 MMOL/L Phosphorus Level 4.1 2.5-4.9 mg/dL Coagulation Labs: Test 12/09/24 03:34 12/08/24 13:55 Range/Units Prothrombin Time 11.0 9.6-11.6 SEC Prothromb Time International Ratio 1.04 0.85-1.15 Activated Partial Thromboplast Time 23.6 L 26.3-35.5 SEC Activated Clotting Time 97 L 100-180 SEC DIAGNOSTICS / RADIOLOGY RESULTS: [ ] IMAGING REPORT Signed PATIENT: FRANCK CORBETT MR#: [id number] : 1960 SEX: F AGE: 64 LOCATION: 2BH ORDER 99 STATUS: ADM IN REPORT#: [id number] SERVICE 0400 REASON: s/p CABG ORDERING PHYSICIAN: ZACARIAS CAZARES MD PROCEDURE: CXR1VW - CHEST 1VW CHEST 1VW HISTORY: Post CABG COMPARISON: 12/09/2024 FINDINGS: A frontal projection of the chest was obtained. Prominent interstitial markings are seen with possible superimposed infiltrates. Poststernotomy changes are seen. The heart is enlarged. Degenerative changes of the thoracolumbar spine are present. All the lines and tubes are again seen in place. No evidence of aortic calcification is seen. IMPRESSION: 1. Prominent interstitial markings are seen with possible superimposed infiltrates. DICTATED BY: CHANTE FRENCH MD DATE: 12/10/24 112 ELECTRONICALLY SIGNED BY: CHANTE FRENCH MD DATE: 12/10/241127 PLAN Follow CT surgeon recommendations Follow cardiology recommendations Multimodal pain management Monitoring H&H Monitor chest tube output Chest x-ray in the morning Transfuse if absolutely necessary to keep hemoglobin above 8 Maintain O2 sats greater than 92% Incentive spirometry q 1 HR Glycemic control with goal of 80-180 continue PT Speech to eval once patient is extubated Aspiration precautions monitor electrolytes: K Goal of 4 Magnesium goal of 2 Replace accordingly keep chest tube open to gravity wean off pressors as tolerated keep MAP above 60 mm/hg aspiration precautions NEURO: Minimize central acting medications as possible. Fall Precautions. Well lighted room through the day and minimize interruptions through the night to prevent acute delirium. PULMONARY: Supplemental 02 as needed Titrate Fio2 to keep Spo2 > or = 90% DuoNebs and CPT as needed IS hourly while awake for pulmonary hygiene Out of bed to chair as tolerated CARDIOVASCULAR: Follow hemodynamics. Titrate vasopressor to keep MAP >65 or systolic blood pressure >95mmHg cardiac monitoring DRIPS: none LINES: [RT IJ CVC arterial line chest tube FC ] GI & NUTRITION: Continue nutritional support Aspirations precautions Prokinetic agents and laxatives as needed KIDNEYS & ELECTROLYTES: Strict monitoring of intake and output Daily weights Avoid nephrotoxic agents Monitor electrolytes and replace as needed Goal urine output of 30mL/hr or 0.5mL/kg/hr Urine output: [ ] Fluid Balance: [ ] ENDOCRINE: Maintain blood glucose between 100-180 at all times. Insulin sliding scale for blood glucose management INFECTIOUS DISEASE: Trend temperature. Aviles-culture if febrile. Micro: [ ] Antibiotics: Ancef x 3 HEMATOLOGY & COAGULATION: Monitor H&H. Keep Hgb > 7 Transfuse 1 unit of PRBC for Hgb < 7 Transfuse 1 pack of platelets of platelets < 20, 000 Watch for any signs and symptoms of bleeding SKIN: Pressure ulcer prevention per facility protocol Rehab: PT/OT Prophylaxis: GI: Pepcid DVT: LOUIS Bonilla per CV surgery Code Status: Full Resuscitation Disposition: ICU Other: Total patient care time [id number] minutes excluding all procedures. GILMER IBARRA Dec 10, 2024 11:27
[2024-12-10] MEDS: PoTASSium chloRIDE 20MEQ ER 20 MEQ ERTAB PO PRN (12:06)
[2024-12-10] MEDS: BENZOCAINE/MENTH/CETYLPYRD CL 1 EACH LOZENGE MM PRN (19:54)
--- NOTE | 2024-12-10 21:46 | PN ---
SUBJECTIVE: A 64-year-old status post CABG, coursing postoperative day #2. OBJECTIVE: GENERAL: Awake, alert, neurologically intact. VITAL SIGNS: Stable as recorded in the medical record. CHEST: Sternum stable. Incision sealed. LUNGS: Clear. EXTREMITIES: Warm and well perfused. No evidence of DVT, hematoma or infection. ASSESSMENT AND PLAN: Status post coronary artery bypass graft. PROBLEMS: * Coronary artery disease. Initiate aspirin 81 mg, metoprolol 25 mg twice a day. * Deep venous thrombosis prophylaxis. Lovenox 30 mg once a day. * Fluid overload. Lasix 20 mg twice a day. PLAN: Discontinue chest tubes. OT, PT, cardiac rehab. TID: [id number] RECEIPT: [id number]
[2024-12-11] VITALS (20 sets, daily range): BP systolic 89–125; BP diastolic 47–72; PULSE 84–99; RESP 17–28; TEMP 97.9–99.8; O2SAT 94–98
[2024-12-11 05:41] LABS: HEMATOCRIT 32.4 % (36-48); MEAN CORPUSCULAR HEMOGLOBIN 31.4 pg (27.0-33.0); MEAN CORPUSCULAR HGB CONC 32.7 g/dL (32.0-36.0); MEAN CORPUSCULAR VOLUME 95.9 fL (79-99); RED BLOOD CELL COUNT(AUTO) 3.38 MIL/uL (4.00-5.50); RED CELL DISTRIBUTION WIDTH 13.2 % (11.0-15.5); WHITE BLOOD COUNT (AUTO) 13.5 K/uL (4.8-10.8)
[2024-12-11 05:58] LABS: CREATININE 0.7 mg/dL (0.5-1.0); POTASSIUM 4.5 mmol/L (3.5-5.1)
[2024-12-11] MEDS: ENOXAPARIN SODIUM 30 MG/0.3 ML SQ SCH (07:58)
--- NOTE | 2024-12-11 12:47 | HMCIMG ---
CHEST 1VW HISTORY: Post CABG COMPARISON: 12/10/2024 FINDINGS: A frontal projection of the chest was obtained. No acute pulmonary infiltrates is seen. Poststernotomy changes are seen. The heart is enlarged. Degenerative changes of the thoracolumbar spine are present. Degenerative changes are seen. No evidence of aortic calcification is seen. IMPRESSION: 1. No acute pulmonary infiltrate is seen.
--- NOTE | 2024-12-11 19:30 | NUR ---
Spoke to LUNA FINISHER TAILOR APPRENTICE regarding patients UA and urine drug screen being ordered STAT. Patient is currently non sedated with Precedex and patient is not able to give urine sample. As per provider urine sample is not required to taken STAT and can be taken routine when patient is awake and cooperative.
--- NOTE | 2024-12-11 20:57 | PN ---
[facility] PROGRESS NOTE Date Patient Seen: Dec 11, 2024 Time of Visit: 11:00 Supervising Physician: Ced Grijalva MD Primary Care Physician: Self Referral, Outpatient Specialists: Zacarias Cazares MD Inpatient Consults: Noah Merino MD, BIS Attending: DR Zacarias Cazares MD PROBLEM LIST: Status post CABG x 2 Acute hypoxemic respiratory failure Obstructive coronary artery disease Acute Non ST elevation infarction on admission Hypertensive heart disease Essential hypertension Hyperlipidemia Diastolic heart failure with an EF of 60% INTERVAL HISTORY: Day #3 s/p CABG. Patient is recovering well. Per RN no major overnight events. She is hemodynamically stable and afebrile saturating 93% on room air in no apparent distress. She reports occasional mid surgical site tenderness otherwise she reports feeling well Urine output 1.7 L with a-1.4 L in the last 24 hours. chest tube has been removed. Chest x-ray with decreased vascular con gestion. WBCs are trending down as expected 13.5 today H&H stable 10.6/32.4. Chemistry unremarkable. Right IJ central line has been removed. Marvin catheter has been removed pending to void. REVIEW OF SYSTEMS: 12 point ROS reviewed with patient. Pertinent positives mentioned above. Otherwise negative. PHYSICAL EXAM: GENERAL: alert, weak, awake oriented x 3 HEENT: EOMI, Sclera non icteric, moist mucosa NECK: Supple, no JVD, trachea midline LUNGS: clear breath sounds bilaterally. No wheezes, mid sternal vertical incision well approximated with no signs of infection. HEART: Regular rate and rhythm. Normal S1 and S2, without murmurs ABD: Abdomen soft, nontender. Bowel sounds present EXT: No clubbing cyanosis or edema NEURO: Alert and oriented to person, follows commands Vital Signs (last 8hr) Date Time Temp Pulse Resp B/P (MAP) Pulse Ox O2 Delivery O2 Flow Rate FiO2 12/11/24 16:00 97.9 89 20 115/65 93 Room Air 12/11/24 15:00 88 20 107/59 93 Room Air 12/11/24 14:00 92 20 124/70 96 Room Air 12/11/24 13:00 92 23 91/64 94 Room Air LABS: Hematology Labs: Test 12/11/24 04:46 Range/Units White Blood Count 13.5 H 4.8-10.8 K/uL Red Blood Count 3.38 L 4.00-5.50 MIL/uL Hemoglobin 10.6 L 12.0-16.0 g/dL Hematocrit 32.4 L 36-48 % Mean Corpuscular Volume 95.9 79-99 fL Mean Corpuscular Hemoglobin 31.4 27.0-33.0 pg Mean Corpuscular Hemoglobin Concent 32.7 32.0-36.0 g/dL Red Cell Distribution Width 13.2 11.0-15.5 % Platelet Count 165 130-400 K/uL Mean Platelet Volume 11.9 H 7.5-10.5 fL Nucleated Red Blood Cells 0.0 0.0-0.19 % Chemistry Labs: Test 12/11/24 20:38 12/11/24 04:46 Range/Units Whole Blood Glucose 93 70-110 MG/DL Sodium Level 140 136-145 mmol/L Potassium Level 4.5 3.5-5.1 mmol/L Chloride Level 105 101-111 mmol/L Carbon Dioxide Level 30 21-32 mmol/L Blood Urea Nitrogen 17 7-18 mg/dL Creatinine 0.7 0.5-1.0 mg/dL Glomerular Filtration Rate Calc 97 >90 mL/min Random Glucose 90 70-105 mg/dL Total Calcium 8.6 8.5-10.1 mg/dL DIAGNOSTICS / RADIOLOGY RESULTS: IMAGING REPORT Signed PATIENT: FRANCK CORBETT MR#: [id number] : 1960 SEX: F AGE: 64 LOCATION: [facility] ORDER 2300 STATUS: ADM IN REPORT#: [id number] SERVICE 0400 REASON: s/p CABG ORDERING PHYSICIAN: ZACARIAS CAZARES MD PROCEDURE: CXR1VW - CHEST 1VW CHEST 1VW HISTORY: Post CABG COMPARISON: 12/10/2024 FINDINGS: A frontal projection of the chest was obtained. No acute pulmonary infiltrates is seen. Poststernotomy changes are seen. The heart is enlarged. Degenerative changes of the thoracolumbar spine are present. Degenerative changes are seen. No evidence of aortic calcification is seen. IMPRESSION: 1. No acute pulmonary infiltrate is seen. DICTATED BY: CHANTE FRENCH MD DATE: 12/11/24 1243 ELECTRONICALLY SIGNED BY: CHANTE FRENCH MD DATE: 12/11/[address] surgeon recommendations Follow cardiology recommendations Multimodal pain management Monitoring H&H Chest x-ray in the morning Transfuse if absolutely necessary to keep hemoglobin above 8 Maintain O2 sats greater than 92% Incentive spirometry q 1 HR Glycemic control with goal of 80-180 continue PT Aspiration precautions monitor electrolytes: K Goal of 4 Magnesium goal of 2 Replace accordingly NEURO: Minimize central acting medications as possible. Fall Precautions. Well lighted room through the day and minimize interruptions through the night to prevent acute delirium. PULMONARY: Supplemental 02 as needed Titrate Fio2 to keep Spo2 > or = 90% DuoNebs and CPT as needed IS hourly while awake for pulmonary hygiene Out of bed to chair as tolerated CARDIOVASCULAR: Follow hemodynamics. Titrate vasopressor to keep MAP >65 or systolic blood pressure >95mmHg cardiac monitoring DRIPS: none LINES: PIV ] GI & NUTRITION: Continue nutritional support Aspirations precautions Prokinetic agents and laxatives as needed KIDNEYS & ELECTROLYTES: Strict monitoring of intake and output Daily weights Avoid nephrotoxic agents Monitor electrolytes and replace as needed Goal urine output of 30mL/hr or 0.5mL/kg/hr Urine output: [ ] Fluid Balance: [ ] ENDOCRINE: Maintain blood glucose between 100-180 at all times. Insulin sliding scale for blood glucose management INFECTIOUS DISEASE: Trend temperature. Aviles-culture if febrile. Micro: [ ] Antibiotics: Ancef x 3 HEMATOLOGY & COAGULATION: Monitor H&H. Keep Hgb > 7 Transfuse 1 unit of PRBC for Hgb < 7 Transfuse 1 pack of platelets of platelets < 20, 000 Watch for any signs and symptoms of bleeding SKIN: Pressure ulcer prevention per facility protocol Rehab: PT/OT Prophylaxis: GI: Pepcid DVT: LOUIS Bonilla per CV surgery Code Status: Full Resuscitation Disposition: ICU Other: Total patient care time [id number] minutes excluding all procedures. GILMER IBARRA Dec 11, 2024 20:56
[2024-12-12] VITALS (12 sets, daily range): BP systolic 93–134; BP diastolic 58–70; PULSE 65–93; RESP 16–29; TEMP 98–98.9; O2SAT 94–96
--- NOTE | 2024-12-12 02:05 | NUR ---
Spoke to LUNA FAULKNER and informed him of patient refusing to take the Librium PO. No orders received for the moment, will continue to monitor patient.
[2024-12-12 04:31] LABS: HEMATOCRIT 31.4 % (36-48); MEAN CORPUSCULAR HEMOGLOBIN 31.3 pg (27.0-33.0); MEAN CORPUSCULAR HGB CONC 33.4 g/dL (32.0-36.0); MEAN CORPUSCULAR VOLUME 93.5 fL (79-99); RED BLOOD CELL COUNT(AUTO) 3.36 MIL/uL (4.00-5.50); RED CELL DISTRIBUTION WIDTH 13.1 % (11.0-15.5); WHITE BLOOD COUNT (AUTO) 10.9 K/uL (4.8-10.8)
[2024-12-12 04:41] LABS: CREATININE 0.7 mg/dL (0.5-1.0); POTASSIUM 4.9 mmol/L (3.5-5.1)
[2024-12-12] MEDS: polyETHYLene GLYCol 3350 17 GM POWD.PACK PO SCH (07:58)
[2024-12-12] MEDS: doCUSate SODIUM 100 MG CAP PO SCH (07:59)
[2024-12-12] MEDS: FAMOTIDINE 20MG TAB PO SCH (07:59)
[2024-12-12] MEDS: acetaMINOPHEN 325 MG TAB PO PRN (08:00)
--- NOTE | 2024-12-12 11:31 | HMCIMG ---
CHEST 1VW HISTORY: Post CABG COMPARISON: 12/11/2022 FINDINGS: A frontal projection of the chest was obtained. No acute pulmonary infiltrates is seen. Poststernotomy changes are seen. The heart is enlarged. Degenerative changes of the thoracolumbar spine are present. Prominent interstitial markings are seen. Degenerative changes are seen. IMPRESSION: 1. No acute pulmonary infiltrate is seen. Prominent interstitial markings.
[2024-12-12] MEDS: guaiFENesin-DM 200/20MG 10ML PO PRN (15:20)
[2024-12-12] MEDS: BENZOCAINE/MENTH/CETYLPYRD CL 1 EACH LOZENGE MM PRN (15:20)
--- NOTE | 2024-12-12 16:46 | NUR ---
[facility] made aware of consult
--- NOTE | 2024-12-12 21:14 | PN ---
[facility] PROGRESS NOTE Date Patient Seen: Dec 12, 2024 Time of Visit: 21:08 Supervising Physician: Vandana Grijalva MD Primary Care Physician: Self Referral, Outpatient Specialists: Zacarias Cazares MD Inpatient Consults: Noah Merino MD, BIS Attending: DR Zacarias Cazares MD PROBLEM LIST: Status post CABG x 2 Acute hypoxemic respiratory failure Obstructive coronary artery disease Acute Non ST elevation infarction on admission Hypertensive heart disease Essential hypertension Hyperlipidemia Diastolic heart failure with an EF of 60% INTERVAL HISTORY: Day #4 s/p CABG. Patient is recovering well. Per RN no major overnight events. Patient is awake alert and oriented x3. Hemodynamically stable and afebrile saturating 96% on room air. Patient denies any chest pain, palpitations or shortness breath. She does report some sore throat. Benzocaine for sore throat ordered p.r.n. and guaifenesin DM for cough. WBCs trending down as expected 10.9 today from 13.5 yesterday H&H stable 10.4/31.4 platelet count is normal. Chemistry creatinine is 0.7 GFR of 97 otherwise unremarkable. We will continue to follow CV surgeon protocol. REVIEW OF SYSTEMS: 12 point ROS reviewed with patient. Pertinent positives mentioned above. Otherwise negative. PHYSICAL EXAM: GENERAL: alert, weak, awake oriented x 3 HEENT: EOMI, Sclera non icteric, moist mucosa NECK: Supple, no JVD, trachea midline LUNGS: clear breath sounds bilaterally. No wheezes, mid sternal vertical incision well approximated with no signs of infection. HEART: Regular rate and rhythm. Normal S1 and S2, without murmurs ABD: Abdomen soft, nontender. Bowel sounds present EXT: No clubbing cyanosis or edema NEURO: Alert and oriented to person, follows commands Vital Signs (last 8hr) Date Time Temp Pulse Resp B/P (MAP) Pulse Ox O2 Delivery O2 Flow Rate FiO2 12/12/24 19:00 98.2 78 18 101/60 96 Room Air 12/12/24 17:50 98.8 65 20 134/65 97 Room Air 12/12/24 16:00 98.1 89 22 110/63 95 Room Air LABS: Hematology Labs: Test 12/12/24 04:02 Range/Units White Blood Count 10.9 H 4.8-10.8 K/uL Red Blood Count 3.36 L 4.00-5.50 MIL/uL Hemoglobin 10.5 L 12.0-16.0 g/dL Hematocrit 31.4 L 36-48 % Mean Corpuscular Volume 93.5 79-99 fL Mean Corpuscular Hemoglobin 31.3 27.0-33.0 pg Mean Corpuscular Hemoglobin Concent 33.4 32.0-36.0 g/dL Red Cell Distribution Width 13.1 11.0-15.5 % Platelet Count 200 130-400 K/uL Mean Platelet Volume 11.1 H 7.5-10.5 fL Nucleated Red Blood Cells 0.0 0.0-0.19 % Chemistry Labs: Test 12/12/24 20:23 12/12/24 04:02 Range/Units Whole Blood Glucose 108 70-110 MG/DL Sodium Level 140 136-145 mmol/L Potassium Level 4.9 3.5-5.1 mmol/L Chloride Level 106 101-111 mmol/L Carbon Dioxide Level 33 H 21-32 mmol/L Blood Urea Nitrogen 15 7-18 mg/dL Creatinine 0.7 0.5-1.0 mg/dL Glomerular Filtration Rate Calc 97 >90 mL/min Random Glucose 95 70-105 mg/dL Total Calcium 8.5 8.5-10.1 mg/dL DIAGNOSTICS / RADIOLOGY RESULTS: [ ] Signed PATIENT: FRANCK CORBETT MR#: [id number] : 1960 SEX: F AGE: 64 LOCATION: MERGED WITH [facility] ORDER 2300 STATUS: ADM IN REPORT#: [id number] SERVICE 0400 REASON: s/p CABG ORDERING PHYSICIAN: ZACARIAS CAZARES MD PROCEDURE: CXR1VW - CHEST 1VW CHEST 1VW HISTORY: Post CABG COMPARISON: 12/11/2022 FINDINGS: A frontal projection of the chest was obtained. No acute pulmonary infiltrates is seen. Poststernotomy changes are seen. The heart is enlarged. Degenerative changes of the thoracolumbar spine are present. Prominent interstitial markings are seen. Degenerative changes are seen. IMPRESSION: 1. No acute pulmonary infiltrate is seen. Prominent interstitial markings. DICTATED BY: CHANTE FRENCH MD DATE: 12/12/24 1125 ELECTRONICALLY SIGNED BY: CHANTE FRENCH MD DATE: 12/12/[address] surgeon recommendations Follow cardiology recommendations Multimodal pain management Monitoring H&H Chest x-ray in the morning Transfuse if absolutely necessary to keep hemoglobin above 8 Maintain O2 sats greater than 92% Incentive spirometry q 1 HR Glycemic control with goal of 80-180 continue PT Aspiration precautions monitor electrolytes: K Goal of 4 Magnesium goal of 2 Replace accordingly NEURO: Minimize central acting medications as possible. Fall Precautions. Well lighted room through the day and minimize interruptions through the night to prevent acute delirium. PULMONARY: Supplemental 02 as needed Titrate Fio2 to keep Spo2 > or = 90% DuoNebs and CPT as needed IS hourly while awake for pulmonary hygiene Out of bed to chair as tolerated CARDIOVASCULAR: Follow hemodynamics. Titrate vasopressor to keep MAP >65 or systolic blood pressure >95mmHg cardiac monitoring DRIPS: none LINES: PIV ] GI & NUTRITION: Continue nutritional support Aspirations precautions Prokinetic agents and laxatives as needed KIDNEYS & ELECTROLYTES: Strict monitoring of intake and output Daily weights Avoid nephrotoxic agents Monitor electrolytes and replace as needed Goal urine output of 30mL/hr or 0.5mL/kg/hr Urine output: [ ] Fluid Balance: [ ] ENDOCRINE: Maintain blood glucose between 100-180 at all times. Insulin sliding scale for blood glucose management INFECTIOUS DISEASE: Trend temperature. Aviles-culture if febrile. Micro: [ ] Antibiotics: Ancef x 3 HEMATOLOGY & COAGULATION: Monitor H&H. Keep Hgb > 7 Transfuse 1 unit of PRBC for Hgb < 7 Transfuse 1 pack of platelets of platelets < 20, 000 Watch for any signs and symptoms of bleeding SKIN: Pressure ulcer prevention per facility protocol Rehab: PT/OT Prophylaxis: GI: Pepcid DVT: LOUIS Bonilla per CV surgery Code Status: Full Resuscitation Disposition: ICU Other: Total patient care time minutes excluding all procedures. GILMER IBARRA DIRECTOR UNDERWRITER SALES Dec 12, 2024 21:14
--- NOTE | 2024-12-12 21:18 | PN ---
SUBJECTIVE: A 64-year-old lady coursing with postoperative day #4. OBJECTIVE: GENERAL: She is awake, alert, in no acute distress. VITAL SIGNS: Stable as recorded in the medical record. CHEST: Sternum stable. Incision sealed. LUNGS: Clear. EXTREMITIES: Warm and well perfused. No evidence of DVT, hematoma, or infection. ASSESSMENT: Status post coronary artery bypass graft. PROBLEMS: * Dyslipidemia. Lipitor 40 mg once a day. * Coronary artery disease. Aspirin 81 mg, metoprolol 25 mg twice a day. * Fluid overload. Lasix 20 mg twice a day. PLAN: OT, PT, cardiac rehab. Transfer to rehab. TID: [id number] RECEIPT: [id number]
[2024-12-13 03:00] VITALS: BP 103/61; PULSE 91; RESP 18; TEMP 98.6
[2024-12-13 03:47] LABS: HEMATOCRIT 32.6 % (36-48); MEAN CORPUSCULAR HEMOGLOBIN 30.8 pg (27.0-33.0); MEAN CORPUSCULAR HGB CONC 32.8 g/dL (32.0-36.0); MEAN CORPUSCULAR VOLUME 93.9 fL (79-99); RED BLOOD CELL COUNT(AUTO) 3.47 MIL/uL (4.00-5.50); WHITE BLOOD COUNT (AUTO) 9.9 K/uL (4.8-10.8)
[2024-12-13 04:00] LABS: CREATININE 0.7 mg/dL (0.5-1.0); PHOSPHORUS 4.1 mg/dL (2.5-4.9); POTASSIUM 3.7 mmol/L (3.5-5.1)
[2024-12-13 07:35] VITALS: O2SAT 95
[2024-12-13 07:49] VITALS: BP 110/61; PULSE 89; RESP 18; TEMP 98.1
--- NOTE | 2024-12-13 08:33 | CONS ---
[facility] CARDIOLOGY CONSULTATION NOTE Date Patient Seen: Dec 13, 2024 Time of Visit: 08:24 Reason for Consultation: [ s/p CABG ] History of Present Illness: [Patient is a 64 yo F with PMH CAD on recent heart cath with 60% distal left main with IVUS 5.1 mm2 in diameter, HLD who underwent CABG during this hospital stay. Post-operatively she is recovering well. No active issues. ] Past Medical History: [ ] Past Surgical History: [ ] Family History: [ ] Social History: [ ] Habits: [Never] smoker. [Denies] alcohol consumption. [Denies] illicit drug use Home Meds: [ ] Current Meds: [ ] Review of Systems: CONST: [No fever, fatigue, or weight changes.] EYES: [No recent vision problems.] ENT: [No congestion, ear pain, or sore throat.] C/V: [No chest pain, palpitations, or edema.] RESP: [No cough, congestion, wheezing or shortness of breath.] GI: [No abdominal pain, nausea, vomiting, constipation, or diarrhea.] : [No incontinence or dysuria.] SKIN: [No rash.] NEURO: [No headache, focal numbness or weakness, dizziness, or seizures.] PSYCH: [No depression or anxiety.] HEME: [No abnormal bruising or bleeding.] LYMPH: [No swollen glands.] Physical Examination: GENERAL: [No acute distress.] HEAD: [Normal with no signs of head trauma.] EYES: [PERRLA, EOMI, conjunctiva and sclera normal.] ENT: [Hearing grossly intact, normal oropharynx.] NECK: [Supple without JVD. There is no tenderness, lymphadenopathy, or masses. No thyromegaly. Normal carotid upstrokes without bruits.] LUNGS: [Clear breath sounds bilaterally. There are right basilar rales one third of the way up the chest. No wheezes, or rhonchi.] HEART: [Normal rate and rhythm. Normal S1 and S2 without mumurs, gallop or rub.] VASC: [Peripheral pulses +2 bilaterally.] ABD: [Bowel sounds normal, soft, nontender, no masses, no organomegaly. No audible bruits.] : [Not examined] LYMPH: [No lymphadenopathy noted.] EXT: [No clubbing, cyanosis or edema.] SKIN: [No rashes or lesions noted.] NEURO: [Awake, alert, and oriented x3. No focal sensory or strength deficits noted.] Vital Signs (last 8hr) Date Time Temp Pulse Resp B/P (MAP) Pulse Ox O2 Delivery O2 Flow Rate FiO2 12/13/24 07:49 98.1 89 18 110/61 95 12/13/24 03:00 98.6 91 18 103/61 97 Room Air Laboratory: [ ] Hematology Labs: Test 12/13/24 03:24 Range/Units White Blood Count 9.9 4.8-10.8 K/uL Red Blood Count 3.47 L 4.00-5.50 MIL/uL Hemoglobin 10.7 L 12.0-16.0 g/dL Hematocrit 32.6 L 36-48 % Mean Corpuscular Volume 93.9 79-99 fL Mean Corpuscular Hemoglobin 30.8 27.0-33.0 pg Mean Corpuscular Hemoglobin Concent 32.8 32.0-36.0 g/dL Red Cell Distribution Width 13.0 11.0-15.5 % Platelet Count 257 # 130-400 K/uL Mean Platelet Volume 11.0 H 7.5-10.5 fL Nucleated Red Blood Cells 0.0 0.0-0.19 % Chemistry Labs: Test 12/13/24 05:02 12/13/24 03:24 Range/Units Whole Blood Glucose 96 70-110 MG/DL Sodium Level 141 136-145 mmol/L Potassium Level 3.7 3.5-5.1 mmol/L Chloride Level 103 101-111 mmol/L Carbon Dioxide Level 33 H 21-32 mmol/L Blood Urea Nitrogen 11 7-18 mg/dL Creatinine 0.7 0.5-1.0 mg/dL Glomerular Filtration Rate Calc 97 >90 mL/min Random Glucose 108 H 70-105 mg/dL Total Calcium 8.9 8.5-10.1 mg/dL Phosphorus Level 4.1 2.5-4.9 mg/dL Magnesium Level 2.00 1.80-2.40 mg/dL Diagnostics / Radiology: [Copy/Paste Echos/Imaging Report here] Assessment: [Status post CABG x 2 Acute hypoxemic respiratory failure Obstructive coronary artery disease Hypertensive heart disease Essential hypertension Hyperlipidemia Diastolic heart failure with an EF of 60% ] Plan: #CAD s/p CABG 2v post op day #5 (GIPSON to LAD, SVG to OM1) -CXR clear this AM -c/w lipitor 40 mg qhs, aspirin 81 mg qd, metoprolol 12.5 mg bid, lasix 20 mg bid -PT/OT, cardiac rehab Hematuria Sent off for UA and for bladder scan given Thank you for this consult. We will follow along post-operatively. Lisa Castillo MD ] LISA CASTILLO MD Dec 13, 2024 08:33
--- NOTE | 2024-12-13 10:18 | HMCIMG ---
FRONTAL CHEST RADIOGRAPH INDICATION: s/p CABG COMPARISON: 12/12/2024 FINDINGS/IMPRESSION: hospital manager leads overlie the field of view. Median sternotomy wires as well as fixation plates and screws are in appropriate alignment. Heart size is normal without pulmonary vascular congestion. Suspect very trace left pleural thickening and/or fluid, but without any evidence for pneumonia or pneumothorax.
[2024-12-13 11:56] LABS: BILIRUBIN,URINE NEGATIVE (NEGATIVE); COLOR,URINE YELLOW (YELLOW); GLUCOSE, URINE (UA) NEGATIVE (NEGATIVE); KETONES,URINE NEGATIVE (NEGATIVE); LEUKOCYTE ESTERASE ,URINE 500 Leu/uL (NEGATIVE); NITRATE,URINE 2+ (NEGATIVE); OCCULT BLOOD,URINE LARGE (NEGATIVE); PH,URINE 5.5 (5.0-8.0); PROTEIN,URINE 50 mg/dL (NEGATIVE); UROBILINOGEN,URINE 6 mg/dL (0.2-1.0)
[2024-12-13 11:57] LABS: ADD UA MICROSCOPIC YES; APPEARANCE,URINE CLOUDY (CLEAR)
[2024-12-13 12:00] LABS: BACTERIA,URINE MOD /HPF (None Seen); MUCUS,URINE FEW LPF (None Seen); RBC,URINE TNTC /HPF (0-1); WBC,URINE TNTC /HPF (0-1)
[2024-12-13 12:22] VITALS: BP 86/57; PULSE 82; RESP 18; TEMP 98.2
[2024-12-13] MEDS ORDERED: FURO20TA6 PO (15:21)
[2024-12-13] MEDS ORDERED: LEVO750T68 PO (15:21)
[2024-12-13] MEDS ORDERED: METO25 PO (15:21)
[2024-12-13] MEDS ORDERED: POTA-200 PO (15:23)
--- NOTE | 2024-12-13 15:26 | DS ---
[facility] DISCHARGE SUMMARY Date Patient Seen: Dec 13, 2024 Time of Visit: 15:25 Supervising Physician: Ced PEARCE MD Primary Care Physician: Self Referral, Outpatient Specialists: Nikita Castillo MD Inpatient Consults: Noah Merino MD, BIS Attending: DR Nikita Castillo MD PROBLEM LIST: NSTEMI , Status post CABG x 2 01/05/25 Acute hypoxemic respiratory failure, resolved Hypertensive heart disease Essential hypertension Hyperlipidemia HFpEF w/ EF of 60% HOSPITAL COURSE: HPI This is a 64 year olf female with a Hx of diastolic Heart Failure, HLD, and recent NSTEMI with LHC revealing obstructive coronary artery disease who was admitted for elective CABG to optimize long-term cardiovascular outcomes. On November she successfully underwent CABG x 2 with uneventful postoperative course. Cardiac surgery- Patient tolerated CABG well without intraoperative complications. Postoperative telemetry showed normal SR and no unexpected arrhythmias. Respiratory- initially required supplemental oxygen postoperatively for mild hypoxic respiratory failure which resolved prior to discharge. Cardiology- Optimized guidelines directed medical therapy for secondary prevention of CAD. Postoperative Recovery- Mobilized early, pain well controlled, and sternal incision healin appropriately. Instructed pt no heavy lifting > 10lbs for 6 weeks to allow sternal healing Incision care- Keep incision clean and dry, monitor for signs of infection. (Redness, drainage and swelling) Diet - Follow a heat healthy low sodium low cholesterol diet Symptoms to report- New or worsening chest pain, shortness of breath, leg pain and swelling, dizziness, palpitations or signs of infection. Pt verbalized understanding. Pt is stable to discharge. Discharged to home with assistance from family and sisters. 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 PROCEDURES: as mentioned above Pt hemodynamically stable and afebrile at time of discharge. PCP notified of patients admission, hospital course and discharge. New Medications: Potassium Chloride (Potassium Chloride) 10 Meq Tab.er.prt 10 MEQ PO DAILY, #30 TAB 0 Refills take with water pill (furosemide). Furosemide (Lasix 20Mg Tab) 20 Mg Tablet 20 MG PO Q12H, #60 TAB 1 Refill Levofloxacin (Levaquin 750Mg Tabs) 750 Mg Tablet 750 MG PO DAILY, #7 TAB 0 Refills Metoprolol Tartrate (Lopressor) 25 Mg Tab 12.5 MG PO BID, #60 TAB 1 Refill Continued Medications: Aspirin (Aspirin) 81 Mg Tab.chew 81 MG PO AM, TAB.CHEW Atorvastatin Calcium (Lipitor) 40 Mg Tablet 40 MG PO PM, TAB Ca Carb & Gluc/Mag Ox & Gluc (Calcium Magnesium Caplet) 500 Mg Calcium-250 Mg Tablet 1 EACH PO AM, TAB Cyanocobalamin (Vitamin B-12) (Vitamin B12) 5,000 Mcg Tab.rapdis 5000 MCG PO AM, TAB Glucosamine/D3/Boswellia Antonia (Osteo Bi-Flex Caplet) 1,500 Mg-400 Unit-100 Mg Tablet 1 EACH PO AM, TAB Sumatriptan Succ/Naproxen Sod (Sumatriptan-Naproxen 85-500 mg) 85 Mg-500 Mg Tablet 1 EACH PO BID for MIGRANES, TAB PHYSICAL EXAM: GENERAL: alert, weak, awake oriented x 3 HEENT: EOMI, Sclera non icteric, moist mucosa NECK: Supple, no JVD, trachea midline LUNGS: clear breath sounds bilaterally. No wheezes, mid sternal vertical incision well approximated with no signs of infection. HEART: Regular rate and rhythm. Normal S1 and S2, without murmurs ABD: Abdomen soft, nontender. Bowel sounds present EXT: No clubbing cyanosis or edema NEURO: Alert and oriented to person, follows commands FOLLOW-UP: Follow-up with PCP in 2-3 days Follow up with Bridge/Structure Inspection Team Leader Dr Noah Merino in 1 week. Follow up with Dr Castillo Cardiovascular surgeon in 2 week. RECOMMENDATIONS: See Discharge Instructions This case was seen and discussed with my supervising physician. More than 30 minutes spent on discharge process, including evaluation of the patient, discussion with nursing staff, medication reconciliation and follow-up appointments GILMER IBARRA Dec 13, 2024 15:26
--- NOTE | 2024-12-13 16:00 | NUR ---
DISCHARGE D/C INSTRUCTIONS GIVEN TO PT AND FAMILY ALL VERBALIZED UNDERSTANDING. IV AND TELE PACK REMOVED. PT WAS ADVISED TO USE CALL LIGHT ONCE RIDE WAS HERE.
--- NOTE | 2024-12-13 16:35 | NUR ---
PT WAS ESCORTED TO PRIVATE CAR VIA WHEELCHAIR.
[2024-12-14] MEDS ORDERED: levoFLOXacin 750 MG TABLET PO SCH (09:00)
== END 2024-12-13 16:40 | disposition home or self-care (01) | DRG 235 ==
LOC: DAHIP 12-08 05:54 → 2CV 12-08 12:08 → 2BH 12-09 06:00 → 2AH 12-12 17:00
PROVIDERS: ADMIT Thoracic Surgery (Cardiothoracic Vascular Surgery); ATTEND Thoracic Surgery (Cardiothoracic Vascular Surgery)
PROC: 0WH Anatomical Regions, General, Insertion (ICD-10-PCS; 2024-12-08)
PROC: 021009W Bypass Coronary Artery, One Artery from Aorta with Autologous Venous Tissue, Open Approach (ICD-10-PCS; principal; 2024-12-08 11:32)
PROC: 02100Z9 Bypass Coronary Artery, One Artery from Left Internal Mammary, Open Approach (ICD-10-PCS; 2024-12-08 11:32)
PROC: 06BQ4ZZ Excision of Left Saphenous Vein, Percutaneous Endoscopic Approach (ICD-10-PCS; 2024-12-08 11:32)
PROC: 0PH000Z Insertion of Rigid Plate Internal Fixation Device into Sternum, Open Approach (ICD-10-PCS; 2024-12-08 11:32)
DX: I21.4 Non-ST elevation (NSTEMI) myocardial infarction (principal); J96.01 Acute respiratory failure with hypoxia; I50.32 Chronic diastolic (congestive) heart failure; I25.10 Atherosclerotic heart disease of native coronary artery without angina pectoris; E78.5 Hyperlipidemia, unspecified; I11.0 Hypertensive heart disease with heart failure; Z79.82 Long term (current) use of aspirin; Z79.899 Other long term (current) drug therapy
CPT/HCPCS: 36415; 36600; 71045; 80048; 80053; 80061; 81001; 82330; 82435; 82803; 82947; 82948; 83036; 83605; 83735; 83880; 84100; 84132; 84295; 85018; 85025; 85027; 85347; 85610; 85730; 86850; 86900; 86901; 86923; 87086; 87186; 87641; 93005; 93312; 93325; 93880; 94002; 94010; 94150; A4357; A4450; A7048; G0378; J0171; J0612; J0690; J1644; J1650; J1815; J1940; J2003; J2250; J2440; J2704; J2720; J3010; J3475; J3480; J3490; J7030; J7040; A4215; A4216; A4221; A4222; A4223; A4510; A4600; A4649; A4663; A4930; A5120; A6204; A6260; C1713; C1776; C1887

== ENCOUNTER → 2025-04-22 | Outpatient (CLI) | payer OTHER ==
[~2025-04-22] MED LIST changes: +FURO20TA6 PO; +LEVO750T68 PO; +METO25 PO; +POTA-200 PO
--- NOTE | 2025-04-23 08:12 | HMCIMG ---
EXAMINATION: SPECTRAL DOPPLER ULTRASOUND EXAMINATION OF THE LEFT LOWER EXTREMITY VEINS. CLINICAL HISTORY: Swelling. COMPARISON: None provided. TECHNIQUE: Real-time ultrasound scan of the veins of the left lower extremity with color Doppler flow, spectral waveform analysis and compression. FINDINGS: DEEP VEINS: The common femoral, superficial femoral, and popliteal veins are echolucent and compressible. There is normal color Doppler flow throughout. The visualized calf veins appear patent. SUPERFICIAL VEINS: The greater saphenous vein is patent and compressible. SOFT TISSUES: No popliteal fossa cyst or other abnormalities. IMPRESSION: No deep venous thrombosis evident in the left lower extremity. No superficial thrombophlebitis in the left lower extremity. /Carin
== END | disposition home or self-care (01) ==
LOC: RAH 15:22
PROVIDERS: ATTEND Internal Medicine Critical Care Medicine
DX: R60.0 Localized edema (principal)
CPT/HCPCS: 93971